=== PATIENT | male | born 1940 | race American Indian/Alaskan Native ===

== ENCOUNTER 2018-07-26 09:25 | Emergency (ER) | payer MEDICARE ==
[2018-07-26 11:25] VITALS: BMI 36.2
== END 2018-07-26 09:44 | disposition left against medical advice (07) ==
LOC: ED 09:25
DX: Z02.89 Encounter for other administrative examinations (principal)

== ENCOUNTER 2018-08-14 20:07 | Inpatient (IN) | payer MEDICARE | END 2018-08-18 18:42 | disposition skilled nursing facility (03) | LOC: 2RNO 08-15 00:17 → ED 20:07 → 5RSO 08-17 14:53 → ERH 23:31 ==

== ENCOUNTER 2018-08-18 18:44 | Inpatient (IN) | payer MEDICARE ==
[2018-08-18 18:51] VITALS: BMI 35.5
[2018-08-18] MEDS ORDERED: oxyCODONE 5 mg Immediate Release Tab PO PRN (18:51)
[2018-08-18] MEDS ORDERED: HYDROmorphone 0.5 mg/0.5 ml ISec IVP PRN (18:55)
[2018-08-18] MEDS: MEROPENEM 500 MG in NS 500 MG/50 ML BAG IVPB SCH (21:30)
[2018-08-18] MEDS: Morphine 30 mg SR Tab PO SCH (21:36)
[2018-08-18] MEDS ORDERED: Influenza Vaccine 60 mcg/0.5 mL SYR (4YR UP) IM ONE (22:53)
[2018-08-18] MEDS ORDERED: Pneumococcal 23-Valent Vaccine IM ONE (22:53)
[2018-08-19] MEDS: oxyCODONE 5 mg Immediate Release Tab PO PRN ×2 (01:46→13:25)
[2018-08-19] MEDS: MEROPENEM 500 MG in NS 500 MG/50 ML BAG IVPB SCH (05:19)
[2018-08-19] MEDS: Pantoprazole 40 mg EC Tab PO SCH (05:21)
[2018-08-19] MEDS: Morphine 30 mg SR Tab PO SCH ×2 (09:10→21:50)
--- NOTE | 2018-08-19 12:26 | HP ---
DATE OF EXAM: 08/19/2018 The patient is seen and examined at the bedside on 08/19/2018, on TCU. CHIEF COMPLAINT: Deconditioned, fatigue and tired. HISTORY OF PRESENT ILLNESS: Mr. Ponce Beltre is 78-year-old male with history of back multiple surgeries. He is going to Pain Management, came to [facility] emergency room on 08/14/2018, for back pain, nauseous and feverish. We admitted the patient. Did CAT scan of the head, cervical spine CT, chest CT, extremity ultrasound, seen by Dr. Lillie Iraheta, and Infectious Disease, getting antibiotic, seen by the Pain Management and Swaging Machine Adjuster, improved, transferred to TCU for continuity of care , and get the physical therapy. PAST MEDICAL HISTORY: Hypertension, back pain and bilateral shoulder pain. ALLERGIES: THE PATIENT IS ALLERGIC TO CIPROFLOXACIN AND ERYTHROMYCIN. SOCIAL HISTORY: No smoking. No drugs. No ethanol. HOME MEDICATIONS: Reviewed by me. REVIEW OF SYSTEM: The patient seen and examined at the bedside. Looking comfortable. No fever. No chills. No headache. No dizziness. No chest pain. No palpitations. No nausea, vomiting or diarrhea. PHYSICAL EXAMINATION: VITAL SIGNS: Temperature 97.8, pulse 52, blood pressure 148/78 and respiratory rate 18. HEENT: Head is normocephalic and atraumatic. Eyes; PERRLA. Extraocular muscles intact. Conjunctivae are clear. Nose patent. Mucous membrane moist. NECK: Supple. No carotid bruits. No JVD. No thyromegaly. CHEST: Bilateral symmetrical. HEART: S1 and S2, positive. LUNGS: Clear to auscultation. ABDOMEN: Soft. Bowel sounds present. No organomegaly. EXTREMITIES: No edema. No cyanosis. NEUROLOGIC: Patient is awake and alert. Moving all four extremities. No focal deficit. LABORATORY DATA: We do not have recent labs, but I reviewed old labs. White blood cell 4.6, hemoglobin 11.4, hematocrit 35.1 and platelet 117. Sodium 135, potassium 3.8, BUN 14, creatinine 0.4. and Glucose 134. MEDICATIONS: Dilaudid, Flomax, Lasix, Lopressor, meropenem, morphine from Pain Management, Neurontin, [place] nasal spray and Pepcid. ASSESSMENT AND PLAN: Mr. Ponce Beltre is a 78-year-old male with the history of leukocytosis, improved, anemia, iron deficiency, abnormal liver function test, came with syncopal episode, found to have urinary tract infection with extended-spectrum beta-lactamase plus Escherichia coli. He has multiple medication issues, including chronic back pain and ulceration of the left leg. We will call Pain Management to continue that pain medication. We will give for 5-7 days treatment of urinary tract infection. Given extended-spectrum beta-lactamase plus Escherichia coli, limited antibiotic as per Infectious Disease. Supportive care. Physical therapy. Seen by the Podiatry Dr. Lucia, has lower extremity ulceration. Local wound care. Seen by Dr. Chapa. We will continue antibiotics and physical therapy and pain management. We will follow. Leah Cantu MD MTDRyan
--- NOTE | 2018-08-19 13:39 | CP.PCM.CON ---
<Yanni Sagastume - Last Filed: 08/19/18 13:58> History of Present Illness - History of Present Illness History of Present Illness: Podiatry - Dr. Khari Mandujano seen and evaluated this AM in TCU for left leg ulceration. Patient was admitted on 08/14/18 for syncopal episode, back pain, nausea, and fever. Patient was found to improve so was transferred to TCU for physical therapy and continuation of care. Podiatry consulted for further management of left leg wound. At present, patient denies any lower extremity complaints. Patient states he has been wearing the compression stockings w/o issues. Tolerating physical therapy. Patient aware he is to follow up with Dr. Scot Cobian in the wound care center upon discharge. Denies n/v/f/d/c/sob/oropeza/cp. Review of Systems - Review of Systems All systems: reviewed and no additional remarkable complaints except (as per HPI) Past Patient History - Past Social History Smoking Status: Former Smoker - CARDIAC Hx Hypertension: Yes - PULMONARY Hx Respiratory Disorders: No - NEUROLOGICAL Hx Neurological Disorder: No - HEENT Hx HEENT Problems: Yes (uses reading glasses) - RENAL Hx Chronic Kidney Disease: No - ENDOCRINE/METABOLIC Hx Endocrine Disorders: No - HEMATOLOGICAL/ONCOLOGICAL Hx Blood Disorders: No - INTEGUMENTARY Hx Dermatological Problems: Yes (b/l discolored) - MUSCULOSKELETAL/RHEUMATOLOGICAL Hx Falls: Yes - GASTROINTESTINAL Hx Gastrointestinal Disorders: Yes (GERD) - GENITOURINARY/GYNECOLOGICAL Hx Genitourinary Disorders: Yes (UTI,ESBL INTHE URINE) Hx Reproductive Disorders: Yes (BPH,PHIMOSIS) - PSYCHIATRIC Hx Substance Use: No - SURGICAL HISTORY Hx Surgeries: Yes Hx Musculoskeletal Surgery: (back sx (5 times)) Hx Orthopedic Surgery: Yes (b/l shoulder) - ANESTHESIA Hx Anesthesia: Yes Hx Anesthesia Reactions: No Meds Allergies/Adverse Reactions: Allergies Allergy/AdvReac Type Severity Reaction Status Date / Time ciprofloxacin [From Cipro] Allergy ANAPHYLAXIS Verified 08/18/18 18:42 - Medications Medications: Current Medications Acetaminophen (Tylenol 325mg Tab) 650 mg PO Q6H PRN PRN Reason: temp above 101 Famotidine (Pepcid) 40 mg PO HS [facility] Last Admin: 08/18/18 21:37 Dose: 40 mg Gabapentin (Neurontin) 600 mg PO TID [facility] Last Admin: 08/19/18 13:22 Dose: 600 mg Hydromorphone HCl (Dilaudid) 0.5 mg IVP Q4H PRN PRN Reason: mild pain ( 1-3) Metoprolol Tartrate (Lopressor) 50 mg PO 0800,1800 [facility] Last Admin: 08/19/18 08:09 Dose: 50 mg Morphine Sulfate (Morphine Extended Release Tab) 60 mg PO Q12 [facility] Last Admin: 08/19/18 09:10 Dose: 60 mg Ondansetron HCl (Zofran Inj) 4 mg IVP Q6H PRN PRN Reason: Nausea/Vomiting Oxycodone HCl (Oxycodone Immediate Release Tab) 5 mg PO Q6 PRN PRN Reason: moderate pain 4-7 Last Admin: 08/19/18 13:25 Dose: 5 mg Pantoprazole Sodium (Protonix Ec Tab) 40 mg PO 0600 [facility] Last Admin: 08/19/18 05:21 Dose: 40 mg Polysaccharide Iron Complex (Ferrex-150) 150 mg PO DAILY [facility] Sodium Chloride ([place] Nasal [place]) 0 ml NS Q2H PRN PRN Reason: Nasal congestion Tamsulosin HCl (Flomax) 0.4 mg PO DAILY [facility] Last Admin: 08/19/18 09:10 Dose: 0.4 mg Physical Exam - Constitutional Appears: Non-toxic, No Acute Distress - Extremities Exam Additional comments: LLE focused exam: Vascular: DP/PT 1/4, CFT < 3 seconds, TG warm to warm, +1 edema appreciated to b/l lower extremities Ortho: No pain with calf compression, MMT 5/5, no pain with palpation shaquille wound Neuro: Gross and protective sensation intact Derm: Small linear ulceration appreciated to the proximal 1/3 of the R leg. Mild serous drainage, no purulence, no malodor, no erythema, no cellulitis, no clinical signs of active infection. - Neurological Exam Neurological exam: Alert, Oriented x3 - Psychiatric Exam Psychiatric exam: Normal Affect, Normal Mood Results - Vital Signs Recent Vital Signs: Last Vital Signs Temp 97.8 F 08/19/18 10:00 Pulse 52 L 08/19/18 10:00 Resp 18 08/19/18 10:00 BP 148/78 08/19/18 10:00 Pulse Ox 100 08/19/18 10:00 Assessment & Plan - Assessment and Plan (Free Text) Assessment: 78M with left lower extremity ulceration; stable, improving Plan: Patient seen and evaluated alongside attending, Dr. Khari ZAVALA wound culture; E. Coli Continue local wound care: Optifoam -Bactroban ordered for QD dressing changes Continue PT/OT Stable from podiatry standpoint Upon discharge, patient to follow up with Dr. Scot Cobian in the wound care center Podiatry will continue to follow <Jose Lucia - Last Filed: 08/22/18 08:08> Meds - Medications Medications: Current Medications Acetaminophen (Tylenol 325mg Tab) 650 mg PO Q6H PRN PRN Reason: temp above 101 Famotidine (Pepcid) 40 mg PO HS [facility] Last Admin: 08/21/18 21:22 Dose: 40 mg Gabapentin (Neurontin) 600 mg PO TID [facility] Last Admin: 08/21/18 17:19 Dose: 600 mg Hydromorphone HCl (Dilaudid) 0.5 mg IVP Q4H PRN PRN Reason: mild pain ( 1-3) Last Admin: 08/19/18 15:41 Dose: 0.5 mg Meropenem/Sodium Chloride (Merrem Iv 500 Mg/Ns 50 Ml) 500 mg in 50 mls @ 100 mls/hr IVPB Q8 [facility]; Protocol Last Admin: 08/22/18 05:30 Dose: 100 mls/hr Magnesium Hydroxide (Milk Of Magnesia) 30 ml PO DAILY PRN PRN Reason: Heartburn Last Admin: 08/21/18 13:24 Dose: 30 ml Metoprolol Tartrate (Lopressor) 50 mg PO 0800,1800 [facility] Last Admin: 08/22/18 07:58 Dose: 50 mg Morphine Sulfate (Morphine Extended Release Tab) 60 mg PO Q12 [facility] Last Admin: 08/21/18 21:21 Dose: 60 mg Mupirocin (Bactroban Ointment) 0 gm TOP DAILY [facility] Last Admin: 08/21/18 09:02 Dose: 1 appl Ondansetron HCl (Zofran Inj) 4 mg IVP Q6H PRN PRN Reason: Nausea/Vomiting Oxycodone HCl (Oxycodone Immediate Release Tab) 5 mg PO Q6 PRN PRN Reason: moderate pain 4-7 Last Admin: 08/22/18 05:30 Dose: 5 mg Pantoprazole Sodium (Protonix Ec Tab) 40 mg PO 0600 [facility] Last Admin: 08/22/18 05:31 Dose: 40 mg Polyethylene Glycol (Miralax) 17 gm PO HS PRN; Protocol PRN Reason: Constipation Polysaccharide Iron Complex (Ferrex-150) 150 mg PO DAILY [facility] Last Admin: 08/21/18 09:03 Dose: 150 mg Sodium Chloride ([place] Nasal [place]) 0 ml NS Q2H PRN PRN Reason: Nasal congestion Tamsulosin HCl (Flomax) 0.4 mg PO DAILY [facility] Last Admin: 08/21/18 09:03 Dose: 0.4 mg Results - Vital Signs Recent Vital Signs: Last Vital Signs Temp 98.3 F 08/21/18 16:00 Pulse 54 L 08/22/18 07:58 Resp 18 08/21/18 16:00 BP 119/75 08/22/18 07:58 Pulse Ox 100 08/21/18 16:00 - Labs Result Diagrams: 08/20/18 08:31 08/20/18 08:31 Attending/Attestation - Attestation I have personally seen and examined this patient.: Yes I have fully participated in the care of the patient.: Yes I have reviewed all pertinent clinical information: Yes
[2018-08-19] MEDS: HYDROmorphone 0.5 mg/0.5 ml ISec IVP PRN (15:41)
--- NOTE | 2018-08-19 18:36 | CP.PCM.CON ---
History of Present Illness - History of Present Illness History of Present Illness: Infectious Disease Consultation: August 19, 2018 78 yo AA male with a syncopal episode at home. Brought [place] [facility] [place]. Found to have UTI with ESBL+ E. coli. He has multiple medical issues including chronic back pain and ulceration on the left lower leg. The patient is awake and alert now. No make no major complaints at this time. The patient is comfortable at this time. Ambulatory. PMHx: HTN, back pain, bilateral shoulder pain PSHx: none given Allergies: Ciprofloxacin and Erythromycin Social Hx: No tobacco No EtOH No illicit drug use. Active Medications Acetaminophen (Tylenol 325mg Tab) 650 mg PO Q6H PRN PRN Reason: temp above 101 Famotidine (Pepcid) 40 mg PO HS [facility] Last Admin: 08/18/18 21:37 Dose: 40 mg Gabapentin (Neurontin) 600 mg PO TID [facility] Last Admin: 08/19/18 17:20 Dose: 600 mg Hydromorphone HCl (Dilaudid) 0.5 mg IVP Q4H PRN PRN Reason: mild pain ( 1-3) Last Admin: 08/19/18 15:41 Dose: 0.5 mg Metoprolol Tartrate (Lopressor) 50 mg PO 0800,1800 [facility] Last Admin: 08/19/18 17:20 Dose: 50 mg Morphine Sulfate (Morphine Extended Release Tab) 60 mg PO Q12 [facility] Last Admin: 08/19/18 09:10 Dose: 60 mg Mupirocin (Bactroban Ointment) 0 gm TOP DAILY [facility] Ondansetron HCl (Zofran Inj) 4 mg IVP Q6H PRN PRN Reason: Nausea/Vomiting Oxycodone HCl (Oxycodone Immediate Release Tab) 5 mg PO Q6 PRN PRN Reason: moderate pain 4-7 Last Admin: 08/19/18 13:25 Dose: 5 mg Pantoprazole Sodium (Protonix Ec Tab) 40 mg PO 0600 [facility] Last Admin: 08/19/18 05:21 Dose: 40 mg Polysaccharide Iron Complex (Ferrex-150) 150 mg PO DAILY [facility] Sodium Chloride ([place] Nasal [place]) 0 ml NS Q2H PRN PRN Reason: Nasal congestion Tamsulosin HCl (Flomax) 0.4 mg PO DAILY [facility] Last Admin: 08/19/18 09:10 Dose: 0.4 mg Family Hx: none given ROS: syncopal episodes. general back pain. No fevers, chills, nausea, vomiting, diarrhea, headaches, dizziness, chest pain, abdominal pain, melena, hematuria, hematemesis, hematochezia. Past Patient History - Past Social History Smoking Status: Former Smoker - CARDIAC Hx Hypertension: Yes - PULMONARY Hx Respiratory Disorders: No - NEUROLOGICAL Hx Neurological Disorder: No - HEENT Hx HEENT Problems: Yes (uses reading glasses) - RENAL Hx Chronic Kidney Disease: No - ENDOCRINE/METABOLIC Hx Endocrine Disorders: No - HEMATOLOGICAL/ONCOLOGICAL Hx Blood Disorders: No - INTEGUMENTARY Hx Dermatological Problems: Yes (b/l discolored) - MUSCULOSKELETAL/RHEUMATOLOGICAL Hx Falls: Yes - GASTROINTESTINAL Hx Gastrointestinal Disorders: Yes (GERD) - GENITOURINARY/GYNECOLOGICAL Hx Genitourinary Disorders: Yes (UTI,ESBL INTHE URINE) Hx Reproductive Disorders: Yes (BPH,PHIMOSIS) - PSYCHIATRIC Hx Substance Use: No - SURGICAL HISTORY Hx Surgeries: Yes Hx Musculoskeletal Surgery: (back sx (5 times)) Hx Orthopedic Surgery: Yes (b/l shoulder) - ANESTHESIA Hx Anesthesia: Yes Hx Anesthesia Reactions: No Meds Allergies/Adverse Reactions: Allergies Allergy/AdvReac Type Severity Reaction Status Date / Time ciprofloxacin [From Cipro] Allergy ANAPHYLAXIS Verified 08/18/18 18:42 - Medications Medications: Current Medications Acetaminophen (Tylenol 325mg Tab) 650 mg PO Q6H PRN PRN Reason: temp above 101 Famotidine (Pepcid) 40 mg PO HS [facility] Last Admin: 08/18/18 21:37 Dose: 40 mg Gabapentin (Neurontin) 600 mg PO TID [facility] Last Admin: 08/19/18 17:20 Dose: 600 mg Hydromorphone HCl (Dilaudid) 0.5 mg IVP Q4H PRN PRN Reason: mild pain ( 1-3) Last Admin: 08/19/18 15:41 Dose: 0.5 mg Metoprolol Tartrate (Lopressor) 50 mg PO 0800,1800 [facility] Last Admin: 08/19/18 17:20 Dose: 50 mg Morphine Sulfate (Morphine Extended Release Tab) 60 mg PO Q12 [facility] Last Admin: 08/19/18 09:10 Dose: 60 mg Mupirocin (Bactroban Ointment) 0 gm TOP DAILY [facility] Ondansetron HCl (Zofran Inj) 4 mg IVP Q6H PRN PRN Reason: Nausea/Vomiting Oxycodone HCl (Oxycodone Immediate Release Tab) 5 mg PO Q6 PRN PRN Reason: moderate pain 4-7 Last Admin: 08/19/18 13:25 Dose: 5 mg Pantoprazole Sodium (Protonix Ec Tab) 40 mg PO 0600 [facility] Last Admin: 08/19/18 05:21 Dose: 40 mg Polysaccharide Iron Complex (Ferrex-150) 150 mg PO DAILY [facility] Sodium Chloride ([place] Nasal [place]) 0 ml NS Q2H PRN PRN Reason: Nasal congestion Tamsulosin HCl (Flomax) 0.4 mg PO DAILY [facility] Last Admin: 08/19/18 09:10 Dose: 0.4 mg Physical Exam - Constitutional Appears: Non-toxic, No Acute Distress - Head Exam Head Exam: ATRAUMATIC, NORMOCEPHALIC - Eye Exam Eye Exam: EOMI, PERRL Pupil Exam: NORMAL ACCOMODATION, PERRL - ENT Exam ENT Exam: Mucous Membranes Moist, Normal External Ear Exam, TM's Normal Bilaterally - Neck Exam Neck exam: Positive for: Full Rom, Normal Inspection - Respiratory Exam Respiratory Exam: Clear to Auscultation Bilateral, NORMAL BREATHING PATTERN. absent: Rales, Rhonchi, Wheezes - Cardiovascular Exam Cardiovascular Exam: REGULAR RHYTHM, RRR, +S1, +S2 - GI/Abdominal Exam GI & Abdominal Exam: Normal Bowel Sounds, Soft. absent: Distended, Tenderness - Extremities Exam Extremities exam: Positive for: full ROM, joint swelling, pedal edema Additional comments: +1 edema of the bilateral lower extremities. - Back Exam Additional comments: two large healed scars on the mid-lower back - Neurological Exam Neurological exam: Alert, CN II-XII Intact, Oriented x3 - Psychiatric Exam Psychiatric exam: Normal Affect, Normal Mood - Skin Skin Exam: Normal Color Results - Vital Signs Recent Vital Signs: Last Vital Signs Temp 97.9 F 08/19/18 16:00 Pulse 54 L 08/19/18 17:20 Resp 20 08/19/18 16:00 BP 142/60 08/19/18 17:20 Pulse Ox 99 08/19/18 16:00 Assessment & Plan - Assessment and Plan (Free Text) Assessment: 78 yo AA male with syncopal episode brought [place] [facility] [place]. UTI with EBSL+ E. coli. Left lower leg ulceration. Started on Meropenem for antibiotic treatment. Supportive care. Fluoroquinolone allergies. Looking for 5-7 days of treatment for UTI. Given ESBL+ E. coli, limited antibiotic choices. Supportive care. Patient overall comfortable. Thank you for allowing me to participate in the care of the patient, we will follow with you.
[2018-08-19] MEDS ORDERED: POLYETHYLENE GLYCOL 3350 17 GM/Dose PACKET PO ONE (21:26)
[2018-08-20] MEDS: oxyCODONE 5 mg Immediate Release Tab PO PRN ×2 (03:18→13:55)
[2018-08-20] MEDS: Pantoprazole 40 mg EC Tab PO SCH (05:24)
[2018-08-20] MEDS ORDERED: POLYETHYLENE GLYCOL 3350 17 GM/Dose PACKET PO PRN (06:00)
[2018-08-20 07:47] LABS: ALB/GLOB RATIO 0.8 (1.1-1.8); ALBUMIN 3.6 g/dL (3.0-4.8); BILIRUBIN,DIRECT 0.3 mg/dL (0.0-0.4)
[2018-08-20 08:40] LABS: HEMOGLOBIN 11.8 g/dL (14.0-18.0); MEAN CELL VOLUME 88.3 fl (80.0-105.0); MEAN CORPUSCULAR HEMOGLOBIN 28.7 pg (25.0-35.0); MEAN CORPUSCULAR HGB CONC 32.5 g/dl (31.0-37.0); MEAN PLATELET VOLUME 10.2 fl (7.0-11.0); RBC 4.11 10^6/uL (3.5-6.1); RED CELL DISTRIBUTION WIDTH 13.7 % (11.5-14.5); WHITE BLOOD COUNT 4.6 10^3/uL (4.5-11.0)
[2018-08-20 08:45] LABS: BLOOD UREA NITROGEN 11 mg/dL (7-21); CALCIUM 10.4 mg/dL (8.4-10.5); GFR NON-AFRICAN AMERICAN > 60
[2018-08-20] MEDS: Morphine 30 mg SR Tab PO SCH ×2 (09:15→21:27)
[2018-08-20] MEDS: Iron Complex Polysacch 150mg Cap PO SCH (09:16)
[2018-08-20] MEDS: Mupirocin 2% Ointment 15 GM TUBE TOP SCH (15:32)
--- NOTE | 2018-08-20 17:54 | CP.PCM.PN ---
Subjective - Date & Time of Evaluation Date of Evaluation: 08/20/18 Time of Evaluation: 16:00 - Subjective Subjective: Infectious Disease Follow Up: August 20, 2018 78 yo AA male with a syncopal episode at home. Brought to [facility] ER for evaluation. Found to have UTI with ESBL+ E. coli. He has multiple medical issues including chronic back pain and ulceration on the left lower leg. The patient is awake and alert now. No make no major complaints at this time. The patient is comfortable at this time. Ambulatory. Objective - Vital Signs/Intake and Output Vital Signs (last 24 hours): Temp Pulse Resp BP Pulse Ox 97.9 F 52 L 20 124/60 99 08/19/18 16:00 08/20/18 17:17 08/19/18 16:00 08/20/18 17:17 08/19/18 16:00 - Medications Medications: Current Medications Acetaminophen (Tylenol 325mg Tab) 650 mg PO Q6H PRN PRN Reason: temp above 101 Famotidine (Pepcid) 40 mg PO HS [facility] Last Admin: 08/19/18 21:52 Dose: 40 mg Gabapentin (Neurontin) 600 mg PO TID [facility] Last Admin: 08/20/18 17:16 Dose: 600 mg Hydromorphone HCl (Dilaudid) 0.5 mg IVP Q4H PRN PRN Reason: mild pain ( 1-3) Last Admin: 08/19/18 15:41 Dose: 0.5 mg Metoprolol Tartrate (Lopressor) 50 mg PO 0800,1800 [facility] Last Admin: 08/20/18 17:17 Dose: 50 mg Morphine Sulfate (Morphine Extended Release Tab) 60 mg PO Q12 [facility] Last Admin: 08/20/18 09:15 Dose: 60 mg Mupirocin (Bactroban Ointment) 0 gm TOP DAILY [facility] Last Admin: 08/20/18 15:32 Dose: 1 appl Ondansetron HCl (Zofran Inj) 4 mg IVP Q6H PRN PRN Reason: Nausea/Vomiting Oxycodone HCl (Oxycodone Immediate Release Tab) 5 mg PO Q6 PRN PRN Reason: moderate pain 4-7 Last Admin: 08/20/18 13:55 Dose: 5 mg Pantoprazole Sodium (Protonix Ec Tab) 40 mg PO 0600 [facility] Last Admin: 08/20/18 05:24 Dose: 40 mg Polyethylene Glycol (Miralax) 17 gm PO HS PRN; Protocol PRN Reason: Constipation Polysaccharide Iron Complex (Ferrex-150) 150 mg PO DAILY [facility] Last Admin: 08/20/18 09:16 Dose: 150 mg Sodium Chloride ([place] Nasal [place]) 0 ml NS Q2H PRN PRN Reason: Nasal congestion Tamsulosin HCl (Flomax) 0.4 mg PO DAILY [facility] Last Admin: 08/20/18 09:16 Dose: 0.4 mg - Labs Labs: 08/20/18 08:31 08/20/18 08:31 - Constitutional Appears: Non-toxic, No Acute Distress - Head Exam Head Exam: ATRAUMATIC, NORMOCEPHALIC - Eye Exam Eye Exam: EOMI, PERRL Pupil Exam: NORMAL ACCOMODATION, PERRL - ENT Exam ENT Exam: Mucous Membranes Moist, TM's Normal Bilaterally - Neck Exam Neck Exam: Full ROM, Normal Inspection - Respiratory Exam Respiratory Exam: Clear to Ausculation Bilateral, NORMAL BREATHING PATTERN. absent: Rales, Rhonchi, Wheezes - Cardiovascular Exam Cardiovascular Exam: REGULAR RHYTHM, RRR, +S1, +S2 - GI/Abdominal Exam GI & Abdominal Exam: Soft, Normal Bowel Sounds. absent: Distended, Tenderness - Extremities Exam Extremities Exam: Full ROM, Normal Inspection Additional comments: +1 edema of the bilateral lower extremities. - Back Exam Additional comments: two large healed scars on the mid-lower back - Neurological Exam Neurological Exam: Alert, Awake, CN II-XII Intact, Oriented x3 - Psychiatric Exam Psychiatric exam: Normal Affect, Normal Mood - Skin Skin Exam: Intact, Normal Color Assessment and Plan - Assessment and Plan (Free Text) Assessment: 78 yo AA male with syncopal episode brought to [facility] for further care. UTI with EBSL+ E. coli. Left lower leg ulceration. Started on Meropenem for antibiotic treatment. Supportive care. Fluoroquinolone allergies. Looking for 5-7 total days of treatment for UTI. Given ESBL+ E. coli, limited antibiotic choices. Supportive care. Patient overall comfortable. Thank you for allowing me to participate in the care of the patient, we will follow with you.
[2018-08-20] MEDS: MEROPENEM 500 MG in NS 500 MG/50 ML BAG IVPB SCH ×2 (18:20→22:31)
--- NOTE | 2018-08-21 02:08 | PN ---
DATE: 08/20/2018 SUBJECTIVE: The patient is seen and examined at bedside on 08/20/2018. Looking comfortable. No fever. No chills. No hematuria or hematochezia. No headache. No dizziness. No chest pain. No palpitation. PHYSICAL EXAMINATION: VITAL SIGNS: Temperature 97.9, pulse rate 82, blood pressure 144/70, respiratory rate 20, and pulse oximetry 99. HEENT: Head; normocephalic and atraumatic. Eyes; PERRLA, extraocular muscles intact, conjunctivae clear. Nose patent. Mucous membranes moist. NECK: Supple. No carotid bruit. No JVD or thyromegaly. CHEST: Bilaterally symmetrical. HEART: S1 and S2 positive. LUNGS: Clear to auscultation. MEDICATIONS: Tylenol, famotidine, gabapentin, Dilaudid, metoprolol, morphine, Zofran, oxycodone, pantoprazole, MiraLax, iron, and Flomax. LABORATORY DATA: White blood cell 4.6, hemoglobin 11.8, hematocrit 36.3, platelets 150. Sodium 137, potassium 4.7, BUN 11, creatinine 0.8, glucose 90. ASSESSMENT AND PLAN: Mr. Alexsander Serra is a 78-year-old male with anemia, came with syncopal episode, to be in hospital, has urinary tract infection with extended spectrum beta-lactamase plus Escherichia coli, left lower leg cellulitis. Started on meropenem for antibiotics treatment, supportive care. THE PATIENT IS ALLERGIC WITH FLUOROQUINOLONE, BUT THAT NOT BE GIVEN. Looking for 5 to 7 days of treatment for urinary tract infection. Given extended spectrum beta-lactamase plus Escherichia coli, limited antibiotic choice. Supportive care. Gastrointestinal and deep venous thrombosis prophylaxis. The patient is getting physical therapy also. History of hypertension, back pain, bilateral shoulder pain, degenerative joint disease, deconditioned. Continue local wound care, antibiotics, physical therapy. We will follow up. Leah Cantu MD MTDD
[2018-08-21] MEDS: MEROPENEM 500 MG in NS 500 MG/50 ML BAG IVPB SCH ×3 (05:11→21:21)
[2018-08-21] MEDS: Pantoprazole 40 mg EC Tab PO SCH (05:11)
[2018-08-21] MEDS: oxyCODONE 5 mg Immediate Release Tab PO PRN (05:17)
[2018-08-21] MEDS: Morphine 30 mg SR Tab PO SCH ×2 (09:01→21:21)
[2018-08-21] MEDS: Mupirocin 2% Ointment 15 GM TUBE TOP SCH (09:02)
[2018-08-21] MEDS: Iron Complex Polysacch 150mg Cap PO SCH (09:03)
--- NOTE | 2018-08-21 11:35 | CP.PCM.PN ---
<Jorge Selby - Last Filed: 08/21/18 11:33> Subjective - Date & Time of Evaluation Date of Evaluation: 08/21/18 Time of Evaluation: 11:33 - Subjective Subjective: Podiatry progress note - Drs. Lucia/Sonya 78M seen and evaluated at bedside in TCU with Dr. Hassan. Denies any acute events overnight and is seen resting comfortably. Reports no pain to LE and has no other acute complaints. Denies n/v/f/c/sob/cp today. Objective - Vital Signs/Intake and Output Vital Signs (last 24 hours): Temp Pulse Resp BP Pulse Ox 97.7 F 51 L 16 110/65 98 08/21/18 10:00 08/21/18 10:00 08/21/18 10:00 08/21/18 10:00 08/21/18 10:00 - Medications Medications: Current Medications Acetaminophen (Tylenol 325mg Tab) 650 mg PO Q6H PRN PRN Reason: temp above 101 Famotidine (Pepcid) 40 mg PO HS [facility] Last Admin: 08/20/18 21:36 Dose: 40 mg Gabapentin (Neurontin) 600 mg PO TID [facility] Last Admin: 08/21/18 09:03 Dose: 600 mg Hydromorphone HCl (Dilaudid) 0.5 mg IVP Q4H PRN PRN Reason: mild pain ( 1-3) Last Admin: 08/19/18 15:41 Dose: 0.5 mg Meropenem/Sodium Chloride (Merrem Iv 500 Mg/Ns 50 Ml) 500 mg in 50 mls @ 100 mls/hr IVPB Q8 [facility]; Protocol Last Admin: 08/21/18 05:11 Dose: 100 mls/hr Metoprolol Tartrate (Lopressor) 50 mg PO 0800,1800 [facility] Last Admin: 08/21/18 07:54 Dose: 50 mg Morphine Sulfate (Morphine Extended Release Tab) 60 mg PO Q12 [facility] Last Admin: 08/21/18 09:01 Dose: 60 mg Mupirocin (Bactroban Ointment) 0 gm TOP DAILY [facility] Last Admin: 08/21/18 09:02 Dose: 1 appl Ondansetron HCl (Zofran Inj) 4 mg IVP Q6H PRN PRN Reason: Nausea/Vomiting Oxycodone HCl (Oxycodone Immediate Release Tab) 5 mg PO Q6 PRN PRN Reason: moderate pain 4-7 Last Admin: 08/21/18 05:17 Dose: 5 mg Pantoprazole Sodium (Protonix Ec Tab) 40 mg PO 0600 [facility] Last Admin: 08/21/18 05:11 Dose: 40 mg Polyethylene Glycol (Miralax) 17 gm PO HS PRN; Protocol PRN Reason: Constipation Polysaccharide Iron Complex (Ferrex-150) 150 mg PO DAILY [facility] Last Admin: 08/21/18 09:03 Dose: 150 mg Sodium Chloride ([place] Nasal [place]) 0 ml NS Q2H PRN PRN Reason: Nasal congestion Tamsulosin HCl (Flomax) 0.4 mg PO DAILY [facility] Last Admin: 08/21/18 09:03 Dose: 0.4 mg - Labs Labs: 08/20/18 08:31 08/20/18 08:31 - Constitutional Appears: Non-toxic - Head Exam Head Exam: ATRAUMATIC - Extremities Exam Additional comments: LLE focused exam: Vascular: DP/PT 1/4, CFT < 3 seconds, TG warm to warm, +1 edema appreciated to b/l lower extremities Ortho: No pain with calf compression, MMT 5/5, no pain with palpation shaquille wound Neuro: Gross and protective sensation intact Derm: Small linear ulceration appreciated to the proximal 1/3 of the R leg. Mild serous drainage, no purulence, no malodor, no erythema, no cellulitis, no clinical signs of active infection. - Neurological Exam Neurological Exam: Alert, Awake, Oriented x3 - Psychiatric Exam Psychiatric exam: Normal Affect, Normal Mood Assessment and Plan - Assessment and Plan (Free Text) Assessment: 78M with left lower extremity ulceration; stable, improving Plan: Patient seen and evaluated with Dr. Sonya ZAVALA wound culture; E. Coli Continue local wound care: Optifoam Iodosorb ordered for dressings Podiatry to see MWF dressing change Continue PT/OT Stable from podiatry standpoint Upon discharge, patient to follow up with Dr. Scot Cobian in the wound care center Podiatry will continue to follow <Jessie Hassan - Last Filed: 08/27/18 15:40> Objective - Vital Signs/Intake and Output Vital Signs (last 24 hours): Temp Pulse Resp BP Pulse Ox 98.3 F 63 20 160/78 H 99 08/25/18 16:00 08/26/18 12:23 08/25/18 16:00 08/26/18 10:17 08/26/18 12:23 - Labs Labs: 08/25/18 07:00 08/26/18 05:00 Attending/Attestation - Attestation I have personally seen and examined this patient.: Yes I have fully participated in the care of the patient.: Yes I have reviewed all pertinent clinical information, including history, physical exam and plan: Yes
[2018-08-21] MEDS: Magnesium Hydroxide Susp 30 ml UD PO PRN (13:24)
--- NOTE | 2018-08-21 16:16 | CP.PCM.PN ---
Subjective - Date & Time of Evaluation Date of Evaluation: 08/21/18 Time of Evaluation: 14:30 - Subjective Subjective: Infectious Disease Follow Up: August 21, 2018 78 yo AA male with a syncopal episode at home. Brought to [facility] ER for evaluation. Found to have UTI with ESBL+ E. coli. He has multiple medical issues including chronic back pain and ulceration on the left lower leg. The patient is awake and alert now. No make no major complaints at this time. The patient is comfortable at this time. Ambulatory. Objective - Vital Signs/Intake and Output Vital Signs (last 24 hours): Temp Pulse Resp BP Pulse Ox 97.7 F 51 L 16 110/65 98 08/21/18 10:00 08/21/18 10:00 08/21/18 10:00 08/21/18 10:00 08/21/18 10:00 - Medications Medications: Current Medications Acetaminophen (Tylenol 325mg Tab) 650 mg PO Q6H PRN PRN Reason: temp above 101 Famotidine (Pepcid) 40 mg PO HS [facility] Last Admin: 08/20/18 21:36 Dose: 40 mg Gabapentin (Neurontin) 600 mg PO TID [facility] Last Admin: 08/21/18 13:23 Dose: 600 mg Hydromorphone HCl (Dilaudid) 0.5 mg IVP Q4H PRN PRN Reason: mild pain ( 1-3) Last Admin: 08/19/18 15:41 Dose: 0.5 mg Meropenem/Sodium Chloride (Merrem Iv 500 Mg/Ns 50 Ml) 500 mg in 50 mls @ 100 mls/hr IVPB Q8 [facility]; Protocol Last Admin: 08/21/18 13:24 Dose: 100 mls/hr Magnesium Hydroxide (Milk Of Magnesia) 30 ml PO DAILY PRN PRN Reason: Heartburn Last Admin: 08/21/18 13:24 Dose: 30 ml Metoprolol Tartrate (Lopressor) 50 mg PO 0800,1800 [facility] Last Admin: 08/21/18 07:54 Dose: 50 mg Morphine Sulfate (Morphine Extended Release Tab) 60 mg PO Q12 [facility] Last Admin: 08/21/18 09:01 Dose: 60 mg Mupirocin (Bactroban Ointment) 0 gm TOP DAILY [facility] Last Admin: 08/21/18 09:02 Dose: 1 appl Ondansetron HCl (Zofran Inj) 4 mg IVP Q6H PRN PRN Reason: Nausea/Vomiting Oxycodone HCl (Oxycodone Immediate Release Tab) 5 mg PO Q6 PRN PRN Reason: moderate pain 4-7 Last Admin: 08/21/18 05:17 Dose: 5 mg Pantoprazole Sodium (Protonix Ec Tab) 40 mg PO 0600 [facility] Last Admin: 08/21/18 05:11 Dose: 40 mg Polyethylene Glycol (Miralax) 17 gm PO HS PRN; Protocol PRN Reason: Constipation Polysaccharide Iron Complex (Ferrex-150) 150 mg PO DAILY [facility] Last Admin: 08/21/18 09:03 Dose: 150 mg Sodium Chloride ([place] Nasal [place]) 0 ml NS Q2H PRN PRN Reason: Nasal congestion Tamsulosin HCl (Flomax) 0.4 mg PO DAILY [facility] Last Admin: 08/21/18 09:03 Dose: 0.4 mg - Labs Labs: 08/20/18 08:31 08/20/18 08:31 - Constitutional Appears: Non-toxic, No Acute Distress - Head Exam Head Exam: ATRAUMATIC, NORMOCEPHALIC - Eye Exam Eye Exam: EOMI, PERRL Pupil Exam: NORMAL ACCOMODATION, PERRL - ENT Exam ENT Exam: Mucous Membranes Moist, Normal External Ear Exam, TM's Normal Bilaterally - Neck Exam Neck Exam: Full ROM, Normal Inspection - Respiratory Exam Respiratory Exam: Clear to Ausculation Bilateral, NORMAL BREATHING PATTERN. absent: Rales, Rhonchi, Wheezes - Cardiovascular Exam Cardiovascular Exam: REGULAR RHYTHM, RRR, +S1, +S2 - GI/Abdominal Exam GI & Abdominal Exam: Soft, Normal Bowel Sounds. absent: Distended, Tenderness - Extremities Exam Extremities Exam: Full ROM, Normal Inspection Additional comments: +1 edema of the bilateral lower extremities - Back Exam Additional comments: two large healed scars on the mid-lower back - Neurological Exam Neurological Exam: Alert, Awake, CN II-XII Intact, Oriented x3 - Psychiatric Exam Psychiatric exam: Normal Affect, Normal Mood - Skin Skin Exam: Intact, Normal Color Assessment and Plan - Assessment and Plan (Free Text) Assessment: 78 yo AA male with syncopal episode brought to [facility] for further care. UTI with EBSL+ E. coli. Left lower leg ulceration. Started on Meropenem for antibiotic treatment. Supportive care. Fluoroquinolone allergies. Looking for 5-7 total days of treatment for UTI. Given ESBL+ E. coli, limited antibiotic choices. Supportive care. Patient overall comfortable. Thank you for allowing me to participate in the care of the patient, we will follow with you.
--- NOTE | 2018-08-21 19:58 | CON ---
DATE OF CONSULTATION: 08/21/2018 The patient is in room 321, bed 1. REASON FOR CONSULTATION: Possible syncope, hypertension. HISTORY OF PRESENT ILLNESS: A 78-year-old male, who is known to have hypertension, chronic back pain, shoulder pain, cervical radiculopathy, history of cervical fusion C3-C6, chronic venous stasis ulcer on the left lower leg, was admitted to the medical floor with possible syncope. The patient denies any chest pain, short of breath or palpitations. The patient had a workup for syncope at medical floor and now he is admitted to Transitional Care Unit for deconditioning and physical therapy. The patient is presently asymptomatic from cardiac point of view. The patient had echo on medical floor, which showed moderate pulmonary hypertension, normal LV ejection fraction of 55%. PAST MEDICAL HISTORY: Positive for hypertension, back pain, and bilateral shoulder pain, cervical radiculopathy, cervical fusion C3-C6, hypertension, chronic venous stasis. The patient had medical sources, who also treated him for urinary tract infection, and he was on antibiotics. MEDICATIONS: The patient's medication at home included, Nexium, metoprolol, Neurontin, Lasix, Flomax, codeine. PERSONAL HISTORY: Denies smoking, denies drinking. ALLERGIES: THE PATIENT IS ALLERGIC TO CIPROFLOXACIN. FAMILY HISTORY: Nonsignificant. REVIEW OF SYSTEMS: All the system reviewed, positives mentioned in history, others are negative. PHYSICAL EXAMINATION: VITAL SIGNS: Blood pressure 110/65, respirations 16, pulse 51, temperature 97.7. HEENT: Head is normocephalic. Eyes: Pupils normal. Conjunctivae are slightly pale. NECK: JVP low. Carotids equal. Thorax AP diameter normal. LUNGS: Clear. CARDIOVASCULAR: S1 and S2. ABDOMEN: Soft, nontender. No organomegaly. Bowel sounds are normal. EXTREMITIES: No clubbing or cyanosis, but the patient has chronic venous stasis changes on the both leg with ulcers on the left lower leg. LABORATORY DATA: WBC 4.6, hemoglobin 11.8, hematocrit 36.3, platelet 158. Sodium 137, potassium 4.7, BUN 11, creatinine 0.8. Calcium 10.4. AST and ALT normal. Total protein and albumin, normal. Cholesterol 136, triglycerides of 112, LDL 73, HDL 32. TSH 1.43. Vitamin B12 of 443, folate 9.3. EKG showed regular sinus rhythm. Chest x-ray showed slight cardiomegaly. It also was read as mild congestion, but the patient with poor inspiratory film and poor penetration, but clinically the patient does not seem to have any CHF at present. The patient had a CT scan of the head on the 08/14/2018, which showed no evidence of any acute intracranial hemorrhage, mild atrophy and chronic microvascular white matter ischemic changes are seen. Echo was done on 08/17/2018, which showed left ventricular size normal, mild concentric left ventricle hypertrophy, normal ejection fraction of 55%, dilated RA, dilated LA, dilated RV, trace aortic regurg, mild mitral regurg, moderate tricuspid regurg with RVSP of 63 mmHg, which is suggestive of moderate pulmonary hypertension. No pericardial effusion. DIAGNOSES: 1. Possible syncope. 2. Oblique mechanical fall. 3. Hypertension. 4. Chronic back pain. 5. Shoulder pain. 6. Cervical radiculopathy. 7. Cervical fusion C3-C6. 8. Chronic venous stasis. 9. Ulceration of left lower leg. 10. Status post urinary tract infection on medical floor. 11. Anemia. 12. Moderate pulmonary hypertension. 13. Deconditioning. PLAN: Plan is to continue physical therapy, continue iron polysaccharide 150 mg p.o. daily, Flomax 0.4 mg daily. metoprolol tartrate 50 mg b.i.d., meropenem 500 mg IV every eight hourly, Neurontin 600 mg p.o. t.i.d., oxycodone p.r.n., every 6 hours for pain, Protonix 40 mg daily day. We will continue present therapy, and we will follow with you. Brooke Montague MD
[2018-08-22] MEDS: MEROPENEM 500 MG in NS 500 MG/50 ML BAG IVPB SCH ×3 (05:30→21:12)
[2018-08-22] MEDS: oxyCODONE 5 mg Immediate Release Tab PO PRN (05:30)
[2018-08-22] MEDS: Pantoprazole 40 mg EC Tab PO SCH (05:31)
--- NOTE | 2018-08-22 08:14 | PN ---
DATE: 08/21/2018 SUBJECTIVE: The patient is a 78-year-old male. The patient was seen and examined at the bedside on 08/21/2018. Looking comfortable. No fever. No chills. No hematuria or hematochezia. No headache, no dizziness. No chest pain or palpitation. Still has dressing on the leg. Awake and alert. No change in the status. PHYSICAL EXAMINATION: VITAL SIGNS: Temperature 97.7, pulse 51, respiratory rate 16, blood pressure 110/55, pulse oximetry 98%. HEENT: Head is normocephalic and atraumatic. Eyes, PERRLA. Extraocular muscles are intact. Conjunctivae clear. Nose patent. Mucous membranes moist. NECK: Supple. MEDICATIONS: Tylenol, Pepcid, Neurontin, Dilaudid, metoprolol, morphine, Bactroban ointment, Zofran, oxycodone, Protonix, MiraLax. LABORATORY DATA: White blood cell 4.6, hemoglobin 11.8, hematocrit 33.3, platelets 158. Sodium 137, potassium 4.7, BUN 11, creatinine 0.8, glucose 90. ASSESSMENT AND PLAN: Mr. Alexsander Serra is a 78-year-old male with multiple medical problems, came with syncopal episodes, found the patient had urinary tract infection with extended spectrum beta-lactamase plus Escherichia coli, left lower leg ulceration. Getting meropenem for antibiotic treatment. THE PATIENT IS ALLERGIC WITH FLUOROQUINOLONES, CANNOT BE GIVEN. Looking for five to seven days of antibiotics. The patient is deconditioned. Getting physical therapy for deconditioning. History of hypertension, back pain, bilateral shoulder pain. Continue antibiotics. Gastrointestinal and deep venous thrombosis prophylaxis. Repeat laboratories. We will follow up. Leah Cantu MD
[2018-08-22] MEDS: Morphine 30 mg SR Tab PO SCH ×2 (09:12→21:10)
[2018-08-22] MEDS: Mupirocin 2% Ointment 15 GM TUBE TOP SCH (11:00)
[2018-08-22] MEDS: Iron Complex Polysacch 150mg Cap PO SCH (11:00)
--- NOTE | 2018-08-22 14:55 | PN ---
DATE: 08/22/2018 REASON FOR CONSULTATION AND FOLLOWUP: Possible syncope, hypertension, cardiac evaluation, and follow up in transitional care unit for continuity of the care. SUBJECTIVE: The patient denies any chest pain, shortness of breath, or any palpitations. OBJECTIVE: GENERAL: Not in apparent distress, lying in the bed, and getting ready for the rehab. VITAL SIGNS: Temperature afebrile, hear rate 50, blood pressure 119/75. HEENT: PERRLA. Extraocular muscles intact. NECK: Supple. No carotid bruits or thyromegaly. CHEST: Clear to auscultation. HEART: S1 and S2 regular. ABDOMEN: Soft. EXTREMITIES: Clubbing, cyanosis negative. LABORATORY DATA: Blood workup as follows; WBC 4.6, hemoglobin 11.8, hematocrit 36.3, platelet count 158. Chemistry showed sodium 130, potassium 4.7, chloride 102, carbon dioxide 27, anion gap of 30, BUN 11, creatinine 0.8. IMPRESSION: A 78-year-old male with past medical history significant for hypertension, bilateral shoulder pain, cervical radiculopathy, cervical C3-C6, hypertension, chronic venous stasis. The patient had echocardiography done, ejection fraction 55%. Electrocardiogram on this admission shows normal sinus with a regular floor who admitted with possible syncope, possible mechanical fall, hypertension, history of chronic back pain, shoulder pain, cervical radiculopathy, chronic venous stasis, history of recurrent urinary tract infection, anemia, moderate pulmonary hypertension, echo, dilated right atrium, dilated left atrium, dilated right ventricle, trace aortic regurgitation, mild mitral regurgitation, moderate tricuspid regurgitation, right ventricular systolic pressure 63, . RECOMMENDATIONS: Continue physical therapy, continue antibiotics for urinary tract infection, continue low-dose beta dyana, and continue adequate analgesia for back pain. Once the patient is stabilizing, may consider stress as outpatient has been scheduled for stress test as outpatient. was given to Cardiology to schedule Lexiscan for risk stratification. Thank you Dr. Cantu providing us the opportunity in taking care of the patient Alexsander Serra. Stress was not done on the floor because patient was orthostatic hypotension and then moved to TCU. Once stable from the back pain, we will consider stress as outpatient in 3 to 4 weeks. Brooke Chapa MD [facility] # [id number]
--- NOTE | 2018-08-22 17:09 | CP.PCM.PN ---
Subjective - Date & Time of Evaluation Date of Evaluation: 08/22/18 Time of Evaluation: 15:30 - Subjective Subjective: Infectious Disease Follow Up: August 22, 2018 78 yo AA male with a syncopal episode at home. Brought to [facility] ER for evaluation. Found to have UTI with ESBL+ E. coli. He has multiple medical issues including chronic back pain and ulceration on the left lower leg. The patient is awake and alert now. No make no major complaints at this time. The patient is comfortable at this time. Ambulatory. Objective - Vital Signs/Intake and Output Vital Signs (last 24 hours): Temp Pulse Resp BP Pulse Ox 98.3 F 54 L 18 119/75 100 08/21/18 16:00 08/22/18 07:58 08/21/18 16:00 08/22/18 07:58 08/21/18 16:00 - Medications Medications: Current Medications Acetaminophen (Tylenol 325mg Tab) 650 mg PO Q6H PRN PRN Reason: temp above 101 Famotidine (Pepcid) 40 mg PO HS [facility] Last Admin: 08/21/18 21:22 Dose: 40 mg Gabapentin (Neurontin) 600 mg PO TID [facility] Last Admin: 08/22/18 13:59 Dose: 600 mg Hydromorphone HCl (Dilaudid) 0.5 mg IVP Q4H PRN PRN Reason: mild pain ( 1-3) Last Admin: 08/19/18 15:41 Dose: 0.5 mg Meropenem/Sodium Chloride (Merrem Iv 500 Mg/Ns 50 Ml) 500 mg in 50 mls @ 100 mls/hr IVPB Q8 [facility]; Protocol Last Admin: 08/22/18 13:58 Dose: 100 mls/hr Magnesium Hydroxide (Milk Of Magnesia) 30 ml PO DAILY PRN PRN Reason: Heartburn Last Admin: 08/21/18 13:24 Dose: 30 ml Metoprolol Tartrate (Lopressor) 50 mg PO 0800,1800 [facility] Last Admin: 08/22/18 07:58 Dose: 50 mg Morphine Sulfate (Morphine Extended Release Tab) 60 mg PO Q12 [facility] Last Admin: 08/22/18 09:12 Dose: 60 mg Mupirocin (Bactroban Ointment) 0 gm TOP DAILY [facility] Last Admin: 08/22/18 11:00 Dose: 1 appl Ondansetron HCl (Zofran Inj) 4 mg IVP Q6H PRN PRN Reason: Nausea/Vomiting Oxycodone HCl (Oxycodone Immediate Release Tab) 5 mg PO Q6 PRN PRN Reason: moderate pain 4-7 Last Admin: 08/22/18 05:30 Dose: 5 mg Pantoprazole Sodium (Protonix Ec Tab) 40 mg PO 0600 [facility] Last Admin: 08/22/18 05:31 Dose: 40 mg Polyethylene Glycol (Miralax) 17 gm PO HS PRN; Protocol PRN Reason: Constipation Polysaccharide Iron Complex (Ferrex-150) 150 mg PO DAILY [facility] Last Admin: 08/22/18 11:00 Dose: 150 mg Sodium Chloride ([place] Nasal [place]) 0 ml NS Q2H PRN PRN Reason: Nasal congestion Tamsulosin HCl (Flomax) 0.4 mg PO DAILY [facility] Last Admin: 08/22/18 11:00 Dose: 0.4 mg - Labs Labs: 08/20/18 08:31 08/20/18 08:31 - Constitutional Appears: Non-toxic, No Acute Distress - Head Exam Head Exam: ATRAUMATIC, NORMOCEPHALIC - Eye Exam Eye Exam: EOMI, PERRL Pupil Exam: NORMAL ACCOMODATION, PERRL - ENT Exam ENT Exam: Mucous Membranes Moist, Normal External Ear Exam, TM's Normal Bilaterally - Neck Exam Neck Exam: Full ROM, Normal Inspection - Respiratory Exam Respiratory Exam: Clear to Ausculation Bilateral, NORMAL BREATHING PATTERN. absent: Rales, Rhonchi, Wheezes - Cardiovascular Exam Cardiovascular Exam: REGULAR RHYTHM, RRR, +S1, +S2 - GI/Abdominal Exam GI & Abdominal Exam: Soft, Normal Bowel Sounds. absent: Distended, Tenderness - Extremities Exam Extremities Exam: Full ROM, Normal Inspection Additional comments: +1 edema of the bilateral lower extremities - Back Exam Additional comments: two large healed scars on the mid-lower back - Neurological Exam Neurological Exam: Alert, Awake, CN II-XII Intact, Oriented x3 - Psychiatric Exam Psychiatric exam: Normal Affect, Normal Mood - Skin Skin Exam: Intact, Normal Color Assessment and Plan - Assessment and Plan (Free Text) Assessment: 78 yo AA male with syncopal episode brought to [facility] for further care. UTI with EBSL+ E. coli. Left lower leg ulceration. Started on Meropenem for antibiotic treatment. Supportive care. Fluoroquinolone allergies. Looking for 5-7 total days of treatment for UTI. Given ESBL+ E. coli, limited antibiotic choices. Supportive care. Patient overall comfortable. Thank you for allowing me to participate in the care of the patient, we will follow with you.
--- NOTE | 2018-08-22 20:15 | PN ---
DATE: 08/22/2018 The patient was seen and examined at the bedside on 08/22/2018. SUBJECTIVE: Looking comfortable. No fever. No chills. No hematuria. No hematochezia. No headache or dizziness. No chest pain or palpitation. Shortness of breath is better. He is getting the physical therapy. No palpitation. PHYSICAL EXAMINATION: VITAL SIGNS: Temperature 98.6, heart rate 50, blood pressure 120/70, and respiratory rate 18. HEENT: Head; normocephalic and atraumatic. Eyes; PERRLA. Extraocular muscles are intact. Conjunctivae clear. Nose patent. Mucous membranes moist. NECK: Supple. No carotid bruits. No JVD or thyromegaly. CHEST: Bilaterally symmetrical. HEART: S1 and S2 positive. LUNGS: Decreased breath sounds, but clear to auscultation. ABDOMEN: Soft. Bowel sounds positive. No organomegaly. EXTREMITIES: No edema. No cyanosis. NEUROLOGIC: The patient is awake and alert; moving all four extremities. No focal deficit. LABORATORY DATA: White blood cells 4.6, hemoglobin 11.8, hematocrit 36.3, and platelets 158. Sodium 130, potassium 4.7, BUN 11, creatinine 0.8, and chloride 102. MEDICATIONS: Bactroban cream, Dilaudid, iron, Flomax, Lopressor, meropenem, MiraLax, morphine, Neurontin, oxycodone, Pepcid, Protonix, Tylenol, and Zofran. ASSESSMENT AND PLAN: Mr. Alexsander Serra is a 78-year-old male with a history of multiple medical problems; has hypertension, bilateral shoulder pain, cervical radiculopathy noted especially at C3-C4, chronic venous stasis, benign prostatic hyperplasia. The patient has echocardiography done, ejection fraction of 65%, deconditioned, getting antibiotics. Waiting for urologist's input. I spoke with Dr. Rita Merino, this patient is his private patient. Will see Dr. Merino. Meanwhile, getting physical therapy, gastrointestinal and deep venous thrombosis prophylaxis. Repeat labs. Seen by the nuisance wildlife control operator and mill control operator. We will follow up in a.m. Leah Cantu MD
[2018-08-23] MEDS: MEROPENEM 500 MG in NS 500 MG/50 ML BAG IVPB SCH ×3 (05:34→21:26)
[2018-08-23] MEDS: Pantoprazole 40 mg EC Tab PO SCH (05:35)
[2018-08-23] MEDS: Morphine 30 mg SR Tab PO SCH ×2 (09:40→21:21)
[2018-08-23] MEDS: Mupirocin 2% Ointment 15 GM TUBE TOP SCH (09:41)
[2018-08-23] MEDS: Iron Complex Polysacch 150mg Cap PO SCH (09:41)
--- NOTE | 2018-08-23 12:16 | CP.PCM.PN ---
<Jorge Selby - Last Filed: 08/23/18 12:13> Subjective - Date & Time of Evaluation Date of Evaluation: 08/23/18 Time of Evaluation: 12:13 - Subjective Subjective: Podiatry progress note - Drs. Lucia/Sonya 78M seen and evaluated at bedside in TCU. Resting comfortably. Denies pain to LE. For PT today. Denies n/v/f/c today and has no other acute complaints. Objective - Vital Signs/Intake and Output Vital Signs (last 24 hours): Temp Pulse Resp BP Pulse Ox 97.5 F L 54 L 20 137/69 97 08/22/18 16:00 08/23/18 08:01 08/22/18 16:00 08/22/18 17:33 08/22/18 16:00 Intake and Output: 08/23/18 08/23/18 06:59 18:59 Intake Total 540 Output Total 600 Balance -60 - Medications Medications: Current Medications Acetaminophen (Tylenol 325mg Tab) 650 mg PO Q6H PRN PRN Reason: temp above 101 Famotidine (Pepcid) 40 mg PO HS [facility] Last Admin: 08/22/18 21:12 Dose: 40 mg Gabapentin (Neurontin) 600 mg PO TID [facility] Last Admin: 08/23/18 09:42 Dose: 600 mg Hydromorphone HCl (Dilaudid) 0.5 mg IVP Q4H PRN PRN Reason: mild pain ( 1-3) Last Admin: 08/19/18 15:41 Dose: 0.5 mg Meropenem/Sodium Chloride (Merrem Iv 500 Mg/Ns 50 Ml) 500 mg in 50 mls @ 100 ml s/hr IVPB Q8 [facility]; Protocol Last Admin: 08/23/18 05:34 Dose: 100 mls/hr Magnesium Hydroxide (Milk Of Magnesia) 30 ml PO DAILY PRN PRN Reason: Heartburn Last Admin: 08/21/18 13:24 Dose: 30 ml Metoprolol Tartrate (Lopressor) 50 mg PO 0800,1800 [facility] Last Admin: 08/23/18 08:01 Dose: Not Given Morphine Sulfate (Morphine Extended Release Tab) 60 mg PO Q12 [facility] Last Admin: 08/23/18 09:40 Dose: 60 mg Mupirocin (Bactroban Ointment) 0 gm TOP DAILY [facility] Last Admin: 08/23/18 09:41 Dose: 1 appl Ondansetron HCl (Zofran Inj) 4 mg IVP Q6H PRN PRN Reason: Nausea/Vomiting Oxycodone HCl (Oxycodone Immediate Release Tab) 5 mg PO Q6 PRN PRN Reason: moderate pain 4-7 Last Admin: 08/22/18 05:30 Dose: 5 mg Pantoprazole Sodium (Protonix Ec Tab) 40 mg PO 0600 [facility] Last Admin: 08/23/18 05:35 Dose: 40 mg Polyethylene Glycol (Miralax) 17 gm PO HS PRN; Protocol PRN Reason: Constipation Polysaccharide Iron Complex (Ferrex-150) 150 mg PO DAILY [facility] Last Admin: 08/23/18 09:41 Dose: 150 mg Sodium Chloride ([place] Nasal [place]) 0 ml NS Q2H PRN PRN Reason: Nasal congestion Tamsulosin HCl (Flomax) 0.4 mg PO DAILY [facility] Last Admin: 08/23/18 09:41 Dose: 0.4 mg - Labs Labs: 08/20/18 08:31 08/20/18 08:31 - Constitutional Appears: Non-toxic - Head Exam Head Exam: ATRAUMATIC - Extremities Exam Additional comments: LLE focused exam: Vascular: DP/PT 1/4, CFT < 3 seconds, TG warm to warm, +1 edema appreciated to b/l lower extremities Ortho: No pain with calf compression, MMT 5/5, no pain with palpation shaquille wound Neuro: Gross and protective sensation intact Derm: Small linear ulceration appreciated to the proximal 1/3 of the R leg. Mild serous drainage, no clinical signs of infection. - Neurological Exam Neurological Exam: Alert, Awake, Oriented x3 - Psychiatric Exam Psychiatric exam: Normal Affect, Normal Mood Assessment and Plan - Assessment and Plan (Free Text) Assessment: 78M with left lower extremity ulceration; stable, improving Plan: Patient seen and evaluated Discussed with Dr. Khari ZAVALA wound culture; E. Coli Continue local wound care: iodosorb and optifoam Podiatry to see MWF dressing change Continue PT/OT Stable per podiatry for outpatient f/u with Dr. Cobian in wound center Will continue to follow <Jose Lucia - Last Filed: 08/23/18 16:41> Objective - Vital Signs/Intake and Output Vital Signs (last 24 hours): Temp Pulse Resp BP Pulse Ox 97.5 F L 54 L 20 137/69 97 08/22/18 16:00 08/23/18 08:01 08/22/18 16:00 08/22/18 17:33 08/22/18 16:00 Intake and Output: 08/23/18 08/23/18 06:59 18:59 Intake Total 540 Output Total 600 Balance -60 - Medications Medications: Current Medications Acetaminophen (Tylenol 325mg Tab) 650 mg PO Q6H PRN PRN Reason: temp above 101 Famotidine (Pepcid) 40 mg PO HS [facility] Last Admin: 08/22/18 21:12 Dose: 40 mg Gabapentin (Neurontin) 600 mg PO TID [facility] Last Admin: 08/23/18 13:22 Dose: 600 mg Hydromorphone HCl (Dilaudid) 0.5 mg IVP Q4H PRN PRN Reason: mild pain ( 1-3) Last Admin: 08/19/18 15:41 Dose: 0.5 mg Meropenem/Sodium Chloride (Merrem Iv 500 Mg/Ns 50 Ml) 500 mg in 50 mls @ 100 mls/hr IVPB Q8 [facility]; Protocol Last Admin: 08/23/18 13:23 Dose: 100 mls/hr Magnesium Hydroxide (Milk Of Magnesia) 30 ml PO DAILY PRN PRN Reason: Heartburn Last Admin: 08/23/18 13:35 Dose: 30 ml Metoprolol Tartrate (Lopressor) 50 mg PO 0800,1800 [facility] Last Admin: 08/23/18 08:01 Dose: Not Given Morphine Sulfate (Morphine Extended Release Tab) 60 mg PO Q12 [facility] Last Admin: 08/23/18 09:40 Dose: 60 mg Mupirocin (Bactroban Ointment) 0 gm TOP DAILY [facility] Last Admin: 08/23/18 09:41 Dose: 1 appl Ondansetron HCl (Zofran Inj) 4 mg IVP Q6H PRN PRN Reason: Nausea/Vomiting Oxycodone HCl (Oxycodone Immediate Release Tab) 5 mg PO Q6 PRN PRN Reason: moderate pain 4-7 Last Admin: 08/22/18 05:30 Dose: 5 mg Pantoprazole Sodium (Protonix Ec Tab) 40 mg PO 0600 [facility] Last Admin: 08/23/18 05:35 Dose: 40 mg Polyethylene Glycol (Miralax) 17 gm PO HS PRN; Protocol PRN Reason: Constipation Polysaccharide Iron Complex (Ferrex-150) 150 mg PO DAILY [facility] Last Admin: 08/23/18 09:41 Dose: 150 mg Sodium Chloride ([place] Nasal [place]) 0 ml NS Q2H PRN PRN Reason: Nasal congestion Tamsulosin HCl (Flomax) 0.4 mg PO DAILY [facility] Last Admin: 08/23/18 09:41 Dose: 0.4 mg - Labs Labs: 08/20/18 08:31 08/20/18 08:31 Attending/Attestation - Attestation I have personally seen and examined this patient.: Yes I have fully participated in the care of the patient.: Yes I have reviewed all pertinent clinical information, including history, physical exam and plan: Yes
[2018-08-23] MEDS: Magnesium Hydroxide Susp 30 ml UD PO PRN (13:35)
--- NOTE | 2018-08-23 15:22 | PN ---
DATE: 08/23/2018 LOCATION: The patient is in room 321, bed 1. REASON FOR CONSULTATION AND FOLLOWUP: Possible syncope, hypertension, cardiac evaluation, and follow up in deconditioning. SUBJECTIVE: The patient getting physical therapy and during physical therapy, he denies any chest pain, shortness of breath or palpitation. PHYSICAL EXAMINATION: VITAL SIGNS: Blood pressure 137/69, respiration 20, pulse 57 and temperature 97.5. HEENT: Head is normocephalic. Eyes; pupils normal. Conjunctivae are slightly pale. NECK: JVP low. Carotids equal. Thorax AP diameter normal. LUNGS: Clear. CARDIOVASCULAR: S1 and S2. ABDOMEN: Soft. Protuberant. No organomegaly. EXTREMITIES: No clubbing. No cyanosis. Chronic venous stasis on the legs. LABORATORY DATA: On 08/20/2018, WBC 4.6, hemoglobin 11.8, hematocrit 36.3 and platelet 158. Sodium 137, potassium 4.7, BUN 11 and creatinine 0.8. AST and ALT normal. Bilirubin normal. Total protein and albumin are normal. Random glucose 90 and calcium 10.4. DIAGNOSES: Hypertension, bilateral shoulder pain, cervical radiculopathy, cervical fusion C3-C6 and chronic venous stasis. Echocardiogram on medical floor showed ejection fraction 55%. Possible mechanical fall, history of chronic back pain, recurrent urinary tract infection, anemia, moderate pulmonary hypertension with dilated right atrium, dilated left atrium, dilated right ventricle on echo, trace aortic regurgitation, mild mitral regurgitation, moderate tricuspid regurgitation, right ventricular systolic pressure 63 mmHg. PLAN: The patient is symptomatic from cardiac point of view. We will continue physical therapy and continue on antibiotic for urinary tract infection, low dose beta-blockers, analgesics for back pain. Once the patient is stabilized and we can schedule for IV Lexiscan stress test as outpatient. In the meantime, we will continue present therapy and we will follow with you. Brooke Montague MD
[2018-08-23] MEDS: oxyCODONE 5 mg Immediate Release Tab PO PRN (17:18)
--- NOTE | 2018-08-23 20:18 | CP.PCM.PN ---
Subjective - Date & Time of Evaluation Date of Evaluation: 08/23/18 Time of Evaluation: 18:45 - Subjective Subjective: Infectious Disease Follow Up: August 23, 2018 78 yo AA male with a syncopal episode at home. [place] [facility] [place]. Found to have UTI with ESBL+ E. coli. He has multiple medical issues including chronic back pain and ulceration on the left lower leg. The patient is awake and alert now. No make no major complaints at this time. The patient is comfortable at this time. Ambulatory. Objective - Vital Signs/Intake and Output Vital Signs (last 24 hours): Temp Pulse Resp BP Pulse Ox 97.8 F 88 14 142/74 99 08/23/18 10:00 08/23/18 17:15 08/23/18 10:00 08/23/18 17:15 08/23/18 16:51 - Medications Medications: Current Medications Acetaminophen (Tylenol 325mg Tab) 650 mg PO Q6H PRN PRN Reason: temp above 101 Famotidine (Pepcid) 40 mg PO HS [facility] Last Admin: 08/22/18 21:12 Dose: 40 mg Gabapentin (Neurontin) 600 mg PO TID [facility] Last Admin: 08/23/18 17:15 Dose: 600 mg Hydromorphone HCl (Dilaudid) 0.5 mg IVP Q4H PRN PRN Reason: mild pain ( 1-3) Last Admin: 08/19/18 15:41 Dose: 0.5 mg Meropenem/Sodium Chloride (Merrem Iv 500 Mg/Ns 50 Ml) 500 mg in 50 mls @ 100 mls/hr IVPB Q8 [facility]; Protocol Last Admin: 08/23/18 13:23 Dose: 100 mls/hr Magnesium Hydroxide (Milk Of Magnesia) 30 ml PO DAILY PRN PRN Reason: Heartburn Last Admin: 08/23/18 13:35 Dose: 30 ml Metoprolol Tartrate (Lopressor) 50 mg PO 0800,1800 [facility] Last Admin: 08/23/18 17:15 Dose: 50 mg Morphine Sulfate (Morphine Extended Release Tab) 60 mg PO Q12 [facility] Last Admin: 08/23/18 09:40 Dose: 60 mg Mupirocin (Bactroban Ointment) 0 gm TOP DAILY [facility] Last Admin: 08/23/18 09:41 Dose: 1 appl Ondansetron HCl (Zofran Inj) 4 mg IVP Q6H PRN PRN Reason: Nausea/Vomiting Oxycodone HCl (Oxycodone Immediate Release Tab) 5 mg PO Q6 PRN PRN Reason: moderate pain 4-7 Last Admin: 08/23/18 17:18 Dose: 5 mg Pantoprazole Sodium (Protonix Ec Tab) 40 mg PO 0600 [facility] Last Admin: 08/23/18 05:35 Dose: 40 mg Polyethylene Glycol (Miralax) 17 gm PO HS PRN; Protocol PRN Reason: Constipation Polysaccharide Iron Complex (Ferrex-150) 150 mg PO DAILY [facility] Last Admin: 08/23/18 09:41 Dose: 150 mg Sodium Chloride ([place] Nasal [place]) 0 ml NS Q2H PRN PRN Reason: Nasal congestion Tamsulosin HCl (Flomax) 0.4 mg PO DAILY [facility] Last Admin: 08/23/18 09:41 Dose: 0.4 mg - Labs Labs: 08/20/18 08:31 08/20/18 08:31 - Constitutional Appears: Non-toxic, No Acute Distress - Head Exam Head Exam: ATRAUMATIC, NORMOCEPHALIC - Eye Exam Eye Exam: EOMI, PERRL Pupil Exam: NORMAL ACCOMODATION, PERRL - ENT Exam ENT Exam: Mucous Membranes Moist, Normal External Ear Exam, TM's Normal Bilaterally - Neck Exam Neck Exam: Full ROM, Normal Inspection - Respiratory Exam Respiratory Exam: Clear to Ausculation Bilateral, NORMAL BREATHING PATTERN. absent: Rales, Rhonchi, Wheezes - Cardiovascular Exam Cardiovascular Exam: REGULAR RHYTHM, RRR, +S1, +S2 - GI/Abdominal Exam GI & Abdominal Exam: Soft, Normal Bowel Sounds. absent: Distended, Tenderness - Extremities Exam Extremities Exam: Full ROM, Normal Inspection Additional comments: +1 edema of the bilateral lower extremities - Back Exam Additional comments: two large healed scars on the mid-lower back - Neurological Exam Neurological Exam: Alert, Awake, CN II-XII Intact, Oriented x3 - Psychiatric Exam Psychiatric exam: Normal Affect, Normal Mood - Skin Skin Exam: Intact, Normal Color Assessment and Plan - Assessment and Plan (Free Text) Assessment: 78 yo AA male with syncopal episode [place] [facility] [place]. UTI with EBSL+ E. coli. Left lower leg ulceration. Started on Meropenem for antibiotic treatment. Supportive care. Fluoroquinolone allergies. Looking for 5-7 total days of treatment for UTI. Given ESBL+ E. coli, limited antibiotic choices. Nearing completion. Supportive care. Patient overall comfortable. Thank you for allowing me to participate in the care of the patient, we will fol low with you.
[2018-08-24] MEDS: oxyCODONE 5 mg Immediate Release Tab PO PRN (02:07)
[2018-08-24] MEDS: MEROPENEM 500 MG in NS 500 MG/50 ML BAG IVPB SCH ×3 (05:27→21:19)
[2018-08-24] MEDS: Pantoprazole 40 mg EC Tab PO SCH (05:28)
[2018-08-24] MEDS: HYDROmorphone 0.5 mg/0.5 ml ISec IVP PRN (05:33)
--- NOTE | 2018-08-24 08:33 | PN ---
DATE: 08/23/2018 SUBJECTIVE: The patient is a 78-year-old male. The patient was seen and examined at bedside on 08/23/2018. Looking comfortable. No fever. No chills. No hematuria. No hematochezia. No headache. No dizziness. No chest pain. No palpitation. Getting physical therapy. PHYSICAL EXAMINATION: VITAL SIGNS: Temperature 98.1, blood pressure 130/70, respiratory rate 20, HEENT: Head: Normocephalic and atraumatic. Eyes: PERRLA. Extraocular muscles intact. Conjunctivae clear. Nose patent. NECK: Supple. No carotid bruits. No JVD or thyromegaly. CHEST: Bilaterally symmetrical. HEART: S1 and S2 positive. LUNGS: Clear to auscultation. ABDOMEN: Soft. Bowel sounds present. No organomegaly. EXTREMITIES: No edema. No cyanosis. NEUROLOGIC: The patient is awake and alert. Follows simple commands. LABORATORY DATA: White blood cells 4.6, hemoglobin 11.8, hematocrit 36.2, and platelets 158. Sodium 137, potassium 4.7, BUN 11, creatinine 0.8. ASSESSMENT AND PLAN: The patient is a 78-year-old male with multiple medical problems of hypertension, bilateral shoulder pain, degenerative joint disease, cervical radiculopathy, chronic venous stasis. Echocardiography shows ejection fraction 55%. History of mechanical fall, history of chronic back pain, recurrent urinary tract infection, pulmonary hypertension, dilated right atrium, dilated left atrium. Gastrointestinal and deep venous thrombosis prophylaxis. The patient is getting better. Getting physical therapy. Infectious Disease is on the case. Cardiology and Podiatry are on the case. Repeat labs. We will follow up. Leah Cantu MD MTDRyan
[2018-08-24] MEDS: Morphine 30 mg SR Tab PO SCH ×2 (09:50→21:20)
[2018-08-24] MEDS: Mupirocin 2% Ointment 15 GM TUBE TOP SCH (10:46)
[2018-08-24] MEDS: Iron Complex Polysacch 150mg Cap PO SCH (10:47)
--- NOTE | 2018-08-24 13:23 | PN ---
DATE: 08/24/2018 SUBJECTIVE: The patient was seen and examined at the bedside on 08/24/2018. Looking comfortable. No fever. No chills. No hematuria. No hematochezia. No headache. No dizziness. No chest pain. No palpitation. Sometimes he is coughing with shortness of breath. Night was unremarkable. PHYSICAL EXAMINATION: VITAL SIGNS: Temperature 97.8, pulse 58, blood pressure 120/62, respiratory rate 20, pulse oxygenation 97%. HEENT: Head normocephalic and atraumatic. Eyes, PERRLA. Extraocular muscles are intact. Conjunctivae clear. Nose patent. Mucous membranes moist. NECK: Supple. No carotid bruits. No JVD or thyromegaly. CHEST: Bilaterally symmetrical. HEART: S1, S2 positive. LUNGS: Clear to auscultation. ABDOMEN: Soft. Bowel sounds present. No organomegaly. EXTREMITIES: No edema, no cyanosis. NEUROLOGICAL: The patient is awake, alert. Moving all four extremities. No focal deficits. MEDICATIONS: Bactroban, Dilaudid, iron, Flomax, Lopressor, Merrem, milk of magnesia, MiraLax, Glucophage, [place] nasal spray, oxycodone, Pepcid, Zofran, Tylenol. LABORATORY DATA: We do not have labs today, but I reviewed old labs. ASSESSMENT AND PLAN: Mr. 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 Echocardiography done by the optical fabricator, chronic obstructive pulmonary disease, rule out obstructive sleep apnea syndrome, chronic pain syndrome. Infectious Disease is on the case. Podiatry is on the case. The patient has urinary tract infection with extended-spectrum beta-lactamase plus Escherichia coli, chronic back pain and ulceration on the left lower leg has dressing. Physical therapy, out of bed. Repeat labs. We will follow up. Leah Cantu MD
--- NOTE | 2018-08-24 14:11 | PN ---
DATE: 08/24/2018 REASON FOR CONSULTATION AND FOLLOWUP: Possible syncope, hypertension, cardiac evaluation, and follow up deconditioning of the body. SUBJECTIVE: The patient denies any chest pain, shortness of breath or any palpitation, getting rehab therapy, feels better. OBJECTIVE: GENERAL: Not in apparent distress. VITAL SIGNS: Temperature afebrile, hear rate 88, blood pressure 142/74. HEENT: PERRLA. Extraocular muscles intact. NECK: Supple. No carotid bruits or thyromegaly. CHEST: Clear to auscultation. HEART: S1 and S2 regular. ABDOMEN: Soft. EXTREMITIES: Clubbing, cyanosis negative. LABORATORY DATA: Blood workup as follows; WBC 4.6, hemoglobin , hematocrit 36.3, platelet count 158. Chemistry showed sodium 137, potassium 4.0, chloride 102, carbon dioxide 12, anion gap of 13, BUN 11, creatinine 0.8. IMPRESSION: A 78-year-old male with past medical history significant for hypertension, history of shoulder pain, cervical radiculopathy, cervical effusion C3-C6, chronic venous stasis, admitted after fall. Echo revealed ejection fraction 55% possible mechanical fall, history of chronic back pain, recurrent urinary tract infection, anemia, moderate pulmonary hypertension, dilated right atrium, right ventricular systolic pressure 63. RECOMMENDATION: outpatient. Discussed with the patient and name has given to Cardiology to schedule stress test in 2 to 3 weeks, [place] as an outpatient. In interim continue treatment for local wound care. Continue metoprolol 50 mg twice a day, adequate analgesia. Thank you Dr. Cantu providing us the opportunity in taking care of the patient, Alexsander Serra. Brooke Chapa MD
[2018-08-24] MEDS ORDERED: Benzocaine/Menthol (Cepacol) Lozenge MT PRN (21:08)
--- NOTE | 2018-08-25 00:47 | CP.PCM.PN ---
Subjective - Date & Time of Evaluation Date of Evaluation: 08/24/18 Time of Evaluation: 23:45 - Subjective Subjective: Infectious Disease Follow Up: August 24, 2018 78 yo AA male with a syncopal episode at home. [place] [facility] [place]. Found to have UTI with ESBL+ E. coli. He has multiple medical issues including chronic back pain and ulceration on the left lower leg. The patient is awake and alert now. No make no major complaints at this time. The patient is comfortable at this time. Ambulatory. Objective - Vital Signs/Intake and Output Vital Signs (last 24 hours): Temp Pulse Resp BP Pulse Ox 97.8 F 67 20 137/69 97 08/24/18 16:00 08/24/18 17:06 08/24/18 16:00 08/24/18 17:06 08/24/18 16:00 - Medications Medications: Current Medications Acetaminophen (Tylenol 325mg Tab) 650 mg PO Q6H PRN PRN Reason: temp above 101 Albuterol/Ipratropium (Duoneb 3 Mg/0.5 Mg (3 Ml) Ud) 3 ml IH [id number] SOLANGE Benzocaine/Menthol (Cepacol Sore Throat) 1 katt MT Q2H PRN PRN Reason: Sore Throat Famotidine (Pepcid) 40 mg PO HS [facility] Last Admin: 08/24/18 21:22 Dose: 40 mg Fluticasone Propionate (Flonase) 1 actuation NS BID [facility] Gabapentin (Neurontin) 600 mg PO TID [facility] Last Admin: 08/24/18 17:07 Dose: 600 mg Hydromorphone HCl (Dilaudid) 0.5 mg IVP Q4H PRN PRN Reason: mild pain ( 1-3) Last Admin: 08/24/18 05:33 Dose: 0.5 mg Meropenem/Sodium Chloride (Merrem Iv 500 Mg/Ns 50 Ml) 500 mg in 50 mls @ 100 mls/hr IVPB Q8 [facility]; Protocol Last Admin: 08/24/18 21:19 Dose: 100 mls/hr Magnesium Hydroxide (Milk Of Magnesia) 30 ml PO DAILY PRN PRN Reason: Heartburn Last Admin: 08/23/18 13:35 Dose: 30 ml Metoprolol Tartrate (Lopressor) 50 mg PO 0800,1800 [facility] Last Admin: 08/24/18 17:06 Dose: 50 mg Montelukast Sodium (Singulair) 10 mg PO HS [facility] Last Admin: 08/24/18 21:23 Dose: 10 mg Morphine Sulfate (Morphine Extended Release Tab) 60 mg PO Q12 [facility] Last Admin: 08/24/18 21:20 Dose: 60 mg Mupirocin (Bactroban Ointment) 0 gm TOP DAILY [facility] Last Admin: 08/24/18 10:46 Dose: Not Given Ondansetron HCl (Zofran Inj) 4 mg IVP Q6H PRN PRN Reason: Nausea/Vomiting Oxycodone HCl (Oxycodone Immediate Release Tab) 5 mg PO Q6 PRN PRN Reason: moderate pain 4-7 Last Admin: 08/24/18 02:07 Dose: 5 mg Pantoprazole Sodium (Protonix Ec Tab) 40 mg PO 0600 [facility] Last Admin: 08/24/18 05:28 Dose: 40 mg Polyethylene Glycol (Miralax) 17 gm PO HS PRN; Protocol PRN Reason: Constipation Polysaccharide Iron Complex (Ferrex-150) 150 mg PO DAILY [facility] Last Admin: 08/24/18 10:47 Dose: 150 mg Prednisone (Prednisone Tab) 20 mg PO DAILY [facility] Sodium Chloride ([place] Nasal [place]) 0 ml NS Q2H PRN PRN Reason: Nasal congestion Tamsulosin HCl (Flomax) 0.4 mg PO DAILY [facility] Last Admin: 08/24/18 10:47 Dose: 0.4 mg - Labs Labs: 08/20/18 08:31 08/20/18 08:31 - Constitutional Appears: Non-toxic, No Acute Distress - Head Exam Head Exam: ATRAUMATIC, NORMOCEPHALIC - Eye Exam Eye Exam: EOMI, PERRL Pupil Exam: NORMAL ACCOMODATION, PERRL - ENT Exam ENT Exam: Mucous Membranes Moist, Normal External Ear Exam, TM's Normal Bilaterally - Neck Exam Neck Exam: Full ROM, Normal Inspection - Respiratory Exam Respiratory Exam: Clear to Ausculation Bilateral, NORMAL BREATHING PATTERN. absent: Rales, Rhonchi, Wheezes - Cardiovascular Exam Cardiovascular Exam: REGULAR RHYTHM, RRR, +S1, +S2 - GI/Abdominal Exam GI & Abdominal Exam: Soft, Normal Bowel Sounds. absent: Distended, Tenderness - Extremities Exam Extremities Exam: Full ROM, Pedal Edema Additional comments: +1 edema of the bilateral lower extremities - Back Exam Additional comments: two large healed scars on the mid-lower back - Neurological Exam Neurological Exam: Alert, Awake, CN II-XII Intact, Oriented x3 - Psychiatric Exam Psychiatric exam: Normal Affect, Normal Mood - Skin Skin Exam: Intact, Normal Color Assessment and Plan - Assessment and Plan (Free Text) Assessment: 78 yo AA male with syncopal episode [place] [facility] [place]. UTI with EBSL+ E. coli. Left lower leg ulceration. Started on Meropenem for antibiotic treatment. Supportive care. Fluoroquinolone allergies. Looking for 5-7 total days of treatment for UTI. Given ESBL+ E. coli, limited antibiotic choices. Nearing completion. Supportive care. Patient overall comfortable. Thank you for allowing me to participate in the care of the patient, we will follow with you.
[2018-08-25] MEDS: Albuterol-Ipratrop 3 mg / 0.5 (3 ml) UD IH SCH ×4 (01:14→20:53)
[2018-08-25] MEDS: oxyCODONE 5 mg Immediate Release Tab PO PRN (03:08)
[2018-08-25] MEDS: MEROPENEM 500 MG in NS 500 MG/50 ML BAG IVPB SCH ×2 (05:45→13:13)
[2018-08-25] MEDS: Pantoprazole 40 mg EC Tab PO SCH (05:46)
[2018-08-25 07:18] LABS: HEMOGLOBIN 11.4 g/dL (14.0-18.0); MEAN CELL VOLUME 87.7 fl (80.0-105.0); MEAN CORPUSCULAR HEMOGLOBIN 28.7 pg (25.0-35.0); MEAN CORPUSCULAR HGB CONC 32.8 g/dl (31.0-37.0); MEAN PLATELET VOLUME 8.9 fl (7.0-11.0); RBC 3.97 10^6/uL (3.5-6.1); RED CELL DISTRIBUTION WIDTH 13.6 % (11.5-14.5); WHITE BLOOD COUNT 4.5 10^3/uL (4.5-11.0)
[2018-08-25 07:54] LABS: BLOOD UREA NITROGEN 18 mg/dL (7-21); CALCIUM 12.2 mg/dL (8.4-10.5); GFR NON-AFRICAN AMERICAN > 60
--- NOTE | 2018-08-25 07:58 | CON ---
DATE: 08/24/2018 PULMONARY CONSULT REFERRING PHYSICIAN: Dr. Cantu REASON FOR CONSULT: Cough, shortness of breath, may have sleep apnea syndrome. HISTORY OF PRESENT ILLNESS: This is a 78-year-old gentleman with past medical history significant for hypertension, history of degenerative joint disease, history of cervical surgery with fusion of C3-C6, chronic stasis ulcer of the lower extremity with venous insufficiency, originally admitted with syncope. Had an ESBL, cause UTI. Complaining about cough, short of breath. Admitted to have snoring, daytime sleepy, and tired. No nausea, no vomiting, no diarrhea. PAST MEDICAL HISTORY: As per history of present illness. Also has pulmonary hypertension. ALLERGIES: TO CIPRO. SOCIAL HISTORY: Denies any active smoking. No alcohol abuse. FAMILY HISTORY: No significant cardiopulmonary disease reported. MEDICATIONS: He is on Bactroban ointment to affected area, Dilaudid 0.5 mg every 4 hours p.r.n., Ferrex 150 mg daily, Flomax 0.4 mg daily, metoprolol tartrate 50 mg twice a day, meropenem 500 mg every 8 hours, MiraLax 17 g h.s. p.r.n., morphine sulfate 60 mg every 12 hours, Neurontin 600 mg three times a day, nasal saline every 2 hours p.r.n., oxycodone immediate release 5 mg every 6 hours p.r.n., Pepcid 40 mg daily, Protonix 40 mg daily, Tylenol p.r.n., Zofran p.r.n. basis. REVIEW OF SYSTEMS: No headache. Has some rhinitis, postnasal drip, cough, short of breath with exertion. No chest pain. No nausea or vomiting. No diarrhea. Has leg edema. Neurologic: Awake, alert, follows simple commands. PHYSICAL EXAMINATION: VITAL SIGNS: Temperature is 98, heart rate 67, respiratory rate is 20, blood pressure 137/69. HEENT: Moist mucous membrane. Crowded airway. Mallampati score is 4. NECK: Supple. No JVD. LUNGS: Have a few scattered rhonchi. HEART: S1, S2. ABDOMEN: Soft, nontender. No organomegaly. EXTREMITIES: Has lymphedema. NEUROLOGIC: Awake, alert, follows simple commands. LABORATORY DATA: Shows hemoglobin 11.8, hematocrit 36.3, WBC 4.6, platelets 158. Sodium 137, potassium 4.7, chloride 104, bicarbonate 27, BUN 11, creatinine 0.8, glucose 90, calcium 10.4, AST 48, ALT 15, alk phos is 80, albumin is 3.6. IMPRESSION AND PLAN: 1. Pulmonary hypertension. 2. Morbid obesity. 3. May have sleep apnea syndrome. 4. Chronic pain syndrome. 5. Severe degenerative joint disease. 6. History of cervical C3-C6 fusion. 7. Hypertension. 8. Lymphedema, lower extremity. 9. Being treated for extended-spectrum beta-lactamases, cause urinary tract infection. 10. Anemia. We will add Flonase one spray each nostril twice a day, Singulair 10 mg daily. May give short course of prednisone for acute bronchitis. Continue antibiotics. Discontinue Pepcid and Protonix for a few days. GERD precaution. We recommend PFT, attended sleep study upon discharge as an outpatient, pain management, fall precaution. Thank you and we will follow with you. Brooke Orourke MD
[2018-08-25] MEDS: Mupirocin 2% Ointment 15 GM TUBE TOP SCH (09:22)
[2018-08-25] MEDS: Iron Complex Polysacch 150mg Cap PO SCH (09:22)
[2018-08-25] MEDS: Fluticasone Nasal 50 mcg/Spray NS SCH ×2 (09:23→17:10)
[2018-08-25] MEDS: Morphine 30 mg SR Tab PO SCH ×2 (09:26→21:14)
--- NOTE | 2018-08-25 09:36 | CP.PCM.PN ---
<Jorge Selby - Last Filed: 08/25/18 09:33> Subjective - Date & Time of Evaluation Date of Evaluation: 08/25/18 Time of Evaluation: 09:33 - Subjective Subjective: Podiatry progress note - Drs. Lucia/Sonya 78M seen and evaluated at bedside in TCU with Dr. Lucia. Seen resting comfortably with no pedal complaints. Denies n/v/f/c today and has no other acute complaints. Objective - Vital Signs/Intake and Output Vital Signs (last 24 hours): Temp Pulse Resp BP Pulse Ox 98 F 88 24 154/84 H 98 08/25/18 06:00 08/25/18 08:00 08/25/18 06:00 08/25/18 08:00 08/25/18 06:00 - Medications Medications: Current Medications Acetaminophen (Tylenol 325mg Tab) 650 mg PO Q6H PRN PRN Reason: temp above 101 Albuterol/Ipratropium (Duoneb 3 Mg/0.5 Mg (3 Ml) Ud) 3 ml IH [id number] COUNTS INCLUDE 234 BEDS AT THE [facility] Last Admin: 08/25/18 07:25 Dose: 3 ml Benzocaine/Menthol (Cepacol Sore Throat) 1 katt MT Q2H PRN PRN Reason: Sore Throat Famotidine (Pepcid) 40 mg PO HS COUNTS INCLUDE 234 BEDS AT THE [facility] Last Admin: 08/24/18 21:22 Dose: 40 mg Fluticasone Propionate (Flonase) 1 actuation NS BID COUNTS INCLUDE 234 BEDS AT THE [facility] Last Admin: 08/25/18 09:23 Dose: 1 actuation Gabapentin (Neurontin) 600 mg PO TID COUNTS INCLUDE 234 BEDS AT THE [facility] Last Admin: 08/25/18 09:24 Dose: 600 mg Hydromorphone HCl (Dilaudid) 0.5 mg IVP Q4H PRN PRN Reason: mild pain ( 1-3) Last Admin: 08/24/18 05:33 Dose: 0.5 mg Meropenem/Sodium Chloride (Merrem Iv 500 Mg/Ns 50 Ml) 500 mg in 50 mls @ 100 mls/hr IVPB Q8 COUNTS INCLUDE 234 BEDS AT THE [facility]; Protocol Last Admin: 08/25/18 05:45 Dose: 100 mls/hr Magnesium Hydroxide (Milk Of Magnesia) 30 ml PO DAILY PRN PRN Reason: Heartburn Last Admin: 08/23/18 13:35 Dose: 30 ml Metoprolol Tartrate (Lopressor) 50 mg PO 0800,1800 COUNTS INCLUDE 234 BEDS AT THE [facility] Last Admin: 08/25/18 08:00 Dose: 50 mg Montelukast Sodium (Singulair) 10 mg PO HS COUNTS INCLUDE 234 BEDS AT THE [facility] Last Admin: 08/24/18 21:23 Dose: 10 mg Morphine Sulfate (Morphine Extended Release Tab) 60 mg PO Q12 COUNTS INCLUDE 234 BEDS AT THE [facility] Last Admin: 08/25/18 09:26 Dose: 60 mg Mupirocin (Bactroban Ointment) 0 gm TOP DAILY COUNTS INCLUDE 234 BEDS AT THE [facility] Last Admin: 08/25/18 09:22 Dose: 1 appl Ondansetron HCl (Zofran Inj) 4 mg IVP Q6H PRN PRN Reason: Nausea/Vomiting Oxycodone HCl (Oxycodone Immediate Release Tab) 5 mg PO Q6 PRN PRN Reason: moderate pain 4-7 Last Admin: 08/25/18 03:08 Dose: 5 mg Pantoprazole Sodium (Protonix Ec Tab) 40 mg PO 0600 COUNTS INCLUDE 234 BEDS AT THE [facility] Last Admin: 08/25/18 05:46 Dose: 40 mg Polyethylene Glycol (Miralax) 17 gm PO HS PRN; Protocol PRN Reason: Constipation Polysaccharide Iron Complex (Ferrex-150) 150 mg PO DAILY COUNTS INCLUDE 234 BEDS AT THE [facility] Last Admin: 08/25/18 09:22 Dose: 150 mg Prednisone (Prednisone Tab) 20 mg PO 0800 COUNTS INCLUDE 234 BEDS AT THE [facility]; Protocol Sodium Chloride ([place] Nasal [place]) 0 ml NS Q2H PRN PRN Reason: Nasal congestion Tamsulosin HCl (Flomax) 0.4 mg PO DAILY COUNTS INCLUDE 234 BEDS AT THE [facility] Last Admin: 08/25/18 09:22 Dose: 0.4 mg - Labs Labs: 08/25/18 07:00 08/25/18 07:00 - Constitutional Appears: Non-toxic - Head Exam Head Exam: ATRAUMATIC - Extremities Exam Additional comments: LLE focused exam: VASC: DP/PT 1/4, CFT < 3 seconds, TG warm to warm, +1 edema appreciated to b/l lower extremities ORTHO: No pain with calf compression, MMT 5/5, no pain with palpation shaquille wound NEURO: Gross and protective sensation intact DERM: Small linear ulceration appreciated to the proximal 1/3 of the R leg. No drainage or malodor appreciated, no clinical signs of infection. - Neurological Exam Neurological Exam: Alert, Awake, Oriented x3 - Psychiatric Exam Psychiatric exam: Normal Affect Assessment and Plan - Assessment and Plan (Free Text) Assessment: 78M with left lower extremity ulceration; stable, improving Plan: Patient seen and evaluated with Dr. Khari ZAVALA wound culture; E. Coli Dressing instruction: iodosorb and optifoam Podiatry to see MWF dressing change Continue PT/OT Stable per podiatry for outpatient f/u with Dr. Cobian in wound center Will continue to follow <Jose Lucia - Last Filed: 08/25/18 19:00> Objective - Vital Signs/Intake and Output Vital Signs (last 24 hours): Temp Pulse Resp BP Pulse Ox 98.3 F 60 20 145/68 99 08/25/18 16:00 08/25/18 17:10 08/25/18 16:00 08/25/18 17:10 08/25/18 16:00 - Medications Medications: Current Medications Acetaminophen (Tylenol 325mg Tab) 650 mg PO Q6H PRN PRN Reason: temp above 101 Albuterol/Ipratropium (Duoneb 3 Mg/0.5 Mg (3 Ml) Ud) 3 ml IH [id number] COUNTS INCLUDE 234 BEDS AT THE [facility] Last Admin: 08/25/18 13:02 Dose: 3 ml Benzocaine/Menthol (Cepacol Sore Throat) 1 katt MT Q2H PRN PRN Reason: Sore Throat Famotidine (Pepcid) 40 mg PO HS COUNTS INCLUDE 234 BEDS AT THE [facility] Last Admin: 08/24/18 21:22 Dose: 40 mg Fluticasone Propionate (Flonase) 1 actuation NS BID COUNTS INCLUDE 234 BEDS AT THE [facility] Last Admin: 08/25/18 17:10 Dose: 1 actuation Gabapentin (Neurontin) 600 mg PO TID COUNTS INCLUDE 234 BEDS AT THE [facility] Last Admin: 08/25/18 17:11 Dose: 600 mg Hydromorphone HCl (Dilaudid) 0.5 mg IVP Q4H PRN PRN Reason: mild pain ( 1-3) Last Admin: 08/24/18 05:33 Dose: 0.5 mg Magnesium Hydroxide (Milk Of Magnesia) 30 ml PO DAILY PRN PRN Reason: Heartburn Last Admin: 08/23/18 13:35 Dose: 30 ml Metoprolol Tartrate (Lopressor) 50 mg PO 0800,1800 COUNTS INCLUDE 234 BEDS AT THE [facility] Last Admin: 08/25/18 17:10 Dose: 50 mg Montelukast Sodium (Singulair) 10 mg PO HS COUNTS INCLUDE 234 BEDS AT THE [facility] Last Admin: 08/24/18 21:23 Dose: 10 mg Morphine Sulfate (Morphine Extended Release Tab) 60 mg PO Q12 COUNTS INCLUDE 234 BEDS AT THE [facility] Last Admin: 08/25/18 09:26 Dose: 60 mg Mupirocin (Bactroban Ointment) 0 gm TOP DAILY COUNTS INCLUDE 234 BEDS AT THE [facility] Last Admin: 08/25/18 09:22 Dose: 1 appl Ondansetron HCl (Zofran Inj) 4 mg IVP Q6H PRN PRN Reason: Nausea/Vomiting Oxycodone HCl (Oxycodone Immediate Release Tab) 5 mg PO Q6 PRN PRN Reason: moderate pain 4-7 Last Admin: 08/25/18 03:08 Dose: 5 mg Pantoprazole Sodium (Protonix Ec Tab) 40 mg PO 0600 COUNTS INCLUDE 234 BEDS AT THE [facility] Last Admin: 08/25/18 05:46 Dose: 40 mg Polyethylene Glycol (Miralax) 17 gm PO HS PRN; Protocol PRN Reason: Constipation Polysaccharide Iron Complex (Ferrex-150) 150 mg PO DAILY COUNTS INCLUDE 234 BEDS AT THE [facility] Last Admin: 08/25/18 09:22 Dose: 150 mg Prednisone (Prednisone Tab) 20 mg PO 0800 [facility]; Protocol Sodium Chloride ([place] Nasal [place]) 0 ml NS Q2H PRN PRN Reason: Nasal congestion Tamsulosin HCl (Flomax) 0.4 mg PO DAILY COUNTS INCLUDE 234 BEDS AT THE [facility] Last Admin: 08/25/18 09:22 Dose: 0.4 mg - Labs Labs: 08/25/18 07:00 08/25/18 07:00 Attending/Attestation - Attestation I have personally seen and examined this patient.: Yes I have fully participated in the care of the patient.: Yes I have reviewed all pertinent clinical information, including history, physical exam and plan: Yes
--- NOTE | 2018-08-25 12:22 | PN ---
DATE: 08/25/2018 PULMONARY PROGRESS NOTE REFERRING PHYSICIAN: Dr. Leah Cantu. SUBJECTIVE: The patient is seen sitting at bedside. No acute distress. No overnight events reported. No headache, rhinitis, cough, shortness of breath, chest pain, abdominal pain, nausea, vomiting, diarrhea or leg pain reported at this time. OBJECTIVE: GENERAL: No acute distress. VITAL SIGNS: Blood pressure 154/84, pulse 88, temperature 98, and oxygen saturation 98% on room air. HEENT: Moist mucous membrane. Mallampati score 4. Crowded airway. NECK: Supple. No JVD. LUNGS: Fair airflow bilaterally. CARDIOVASCULAR: S1 and S2. ABDOMEN: Soft and nontender. No distention. No organomegaly. EXTREMITIES: Lymphedema, bilateral lower extremities. Ulceration, left lower extremity. NEUROLOGIC: Awake, alert, and verbal. Following commands. MEDICATIONS: Reviewed. Tylenol 650 mg every 6 hours p.r.n. for temperature above 101, DuoNeb 3 mL inhalation every 6 hours, Cepacol throat lozenges every 2 hours p.r.n., Pepcid 40 mg at bedtime, Flonase nasal spray, Neurontin 600 mg three times a day, Dilaudid 0.5 mg IV push every 4 hours p.r.n. for mild pain, milk of magnesia 30 mL p.o. daily p.r.n., meropenem 500 mg every 8 hours, metoprolol tartrate 50 mg twice a day, Singulair 10 mg at bedtime, morphine extended release 60 mg every 12 hours, Bactroban topically daily to affected area, Zofran 4 mg every 6 hours p.r.n, oxycodone 5 mg every 6 hours p.r.n., Protonix 40 mg daily, MiraLax 17 g at bedtime p.r.n., Ferrex 150 mg daily, prednisone 20 mg daily, [place] nasal spray every 2 hours p.r.n., and Flomax 0.4 mg daily. LABORATORY DATA: Reviewed. WBC 4.5, RBC 3.97, hemoglobin 11.4, hematocrit 34.8 and platelets 165. Sodium 137, potassium 5, chloride 105, carbon dioxide 28, anion gap 9, BUN 18, creatinine 0.7, GFR greater than 60, random glucose 95, and calcium 12.2. IMPRESSION AND PLAN: Pulmonary hypertension, morbid obesity, suspected sleep apnea syndrome, chronic pain syndrome, degenerative joint disease, history of cervical C3-C6 fusion, hypertension, lymphedema lower extremities, being treated for extended-spectrum beta-lactamase urinary tract infection, anemia, chronic venous stasis, and chronic obstructive pulmonary disease. Pulmonary point of view, continue Flonase nasal spray, leukotriene inhibitors, and inhaled bronchodilators. We will taper off steroids in the next couple of days. Continue antibiotics per Infectious Disease, gastric prophylaxis, sleep apnea precaution, head of bed elevated at 45 degrees, and gastroesophageal reflux disease precaution. We recommend the patient have full pulmonary function test as outpatient to assess chronic lung disease. We recommend the patient have attended sleep study as outpatient to evaluate for suspected sleep apnea syndrome. Pain management. This patient was seen and examined with Dr. Orourke. Discussed assessment and plan as described above. This patient was seen and examined with Enrique Carter, nurse practitioner. Discussed assessment and plan as described above. Thank you for this consult. We will follow with you. Enrique Carter APN Brooke Orourke MD AMANDA
--- NOTE | 2018-08-25 12:52 | PN ---
DATE: 08/25/2018 REASON FOR CONSULTATION: Followup possible syncope, hypertension, cardiac evaluation, deconditioning of the body. SUBJECTIVE: The patient denies any chest pain, shortness of breath, any palpitation, not in apparent distress, getting ready for rehab. PHYSICAL EXAMINATION: VITAL SIGNS: Temperature afebrile, heart rate 88, blood pressure 154/84. HEENT: PERRLA. Extraocular muscles are intact. NECK: Supple. No carotid or thyromegaly. CHEST: Clear to auscultation. HEART: S1 and S2 regular. ABDOMEN: Soft. EXTREMITIES: Clubbing or cyanosis negative. LABORATORY DATA: Blood workup: WBC 4.5, hemoglobin 11.4, hematocrit 34.8, and platelet count 165. Chemistry showed sodium 137, potassium 5, chloride 105, carbon dioxide 28, anion gap of 9, BUN 18, creatinine 0.7, calcium 12.2 elevated. IMPRESSION: A 78-year-old male with past medical history significant for hypertension, shoulder pain, cervical radiculopathy, cervical effusion C3-C6, chronic venous stasis, admitted for fall. Echocardiogram revealed ejection fraction 55%, possible mechanical fall, history of chronic back pain, recurrent urinary tract infection, anemia, moderate pulmonary hypertension, dilated right atrium, dilated right ventricle, right ventricular systolic pressure of 63. RECOMMENDATIONS: The patient is scheduled for stress test as outpatient 2 to 3 weeks. Yesterday, Lisa went there to talk to the patient. The patient initially refused this morning. Discussed with the patient. The patient is agreeable. We will schedule a stress test as outpatient. The patient needs workup for repeat calcium tomorrow. If remains elevated, consider workup for metastatic disease. Thank you Dr. Cantu for providing us the opportunity in taking care of patient, Alexsander Serra. Brooke Chapa MD
--- NOTE | 2018-08-25 16:20 | CP.PCM.PN ---
Subjective - Date & Time of Evaluation Date of Evaluation: 08/25/18 Time of Evaluation: 14:00 - Subjective Subjective: Infectious Disease Follow Up: August 25, 2018 78 yo AA male with a syncopal episode at home. Brought to [facility] for [place]. Found to have UTI with ESBL+ E. coli. He has multiple medical issues including chronic back pain and ulceration on the left lower leg. The patient is awake and alert now. No major complaints at this time. The patient is comfortable at this time. Ambulatory. Tolerating Meropenem. Objective - Vital Signs/Intake and Output Vital Signs (last 24 hours): Temp Pulse Resp BP Pulse Ox 98 F 88 24 154/84 H 98 08/25/18 06:00 08/25/18 08:00 08/25/18 06:00 08/25/18 08:00 08/25/18 06:00 - Medications Medications: Current Medications Acetaminophen (Tylenol 325mg Tab) 650 mg PO Q6H PRN PRN Reason: temp above 101 Albuterol/Ipratropium (Duoneb 3 Mg/0.5 Mg (3 Ml) Ud) 3 ml IH [id number] [facility] Last Admin: 08/25/18 13:02 Dose: 3 ml Benzocaine/Menthol (Cepacol Sore Throat) 1 katt MT Q2H PRN PRN Reason: Sore Throat Famotidine (Pepcid) 40 mg PO HS [facility] Last Admin: 08/24/18 21:22 Dose: 40 mg Fluticasone Propionate (Flonase) 1 actuation NS BID [facility] Last Admin: 08/25/18 09:23 Dose: 1 actuation Gabapentin (Neurontin) 600 mg PO TID [facility] Last Admin: 08/25/18 13:15 Dose: 600 mg Hydromorphone HCl (Dilaudid) 0.5 mg IVP Q4H PRN PRN Reason: mild pain ( 1-3) Last Admin: 08/24/18 05:33 Dose: 0.5 mg Meropenem/Sodium Chloride (Merrem Iv 500 Mg/Ns 50 Ml) 500 mg in 50 mls @ 100 mls/hr IVPB Q8 [facility]; Protocol Last Admin: 08/25/18 13:13 Dose: 100 mls/hr Magnesium Hydroxide (Milk Of Magnesia) 30 ml PO DAILY PRN PRN Reason: Heartburn Last Admin: 08/23/18 13:35 Dose: 30 ml Metoprolol Tartrate (Lopressor) 50 mg PO 0800,1800 [facility] Last Admin: 08/25/18 08:00 Dose: 50 mg Montelukast Sodium (Singulair) 10 mg PO HS [facility] Last Admin: 08/24/18 21:23 Dose: 10 mg Morphine Sulfate (Morphine Extended Release Tab) 60 mg PO Q12 [facility] Last Admin: 08/25/18 09:26 Dose: 60 mg Mupirocin (Bactroban Ointment) 0 gm TOP DAILY [facility] Last Admin: 08/25/18 09:22 Dose: 1 appl Ondansetron HCl (Zofran Inj) 4 mg IVP Q6H PRN PRN Reason: Nausea/Vomiting Oxycodone HCl (Oxycodone Immediate Release Tab) 5 mg PO Q6 PRN PRN Reason: moderate pain 4-7 Last Admin: 08/25/18 03:08 Dose: 5 mg Pantoprazole Sodium (Protonix Ec Tab) 40 mg PO 0600 [facility] Last Admin: 08/25/18 05:46 Dose: 40 mg Polyethylene Glycol (Miralax) 17 gm PO HS PRN; Protocol PRN Reason: Constipation Polysaccharide Iron Complex (Ferrex-150) 150 mg PO DAILY [facility] Last Admin: 08/25/18 09:22 Dose: 150 mg Prednisone (Prednisone Tab) 20 mg PO 0800 [facility]; Protocol Sodium Chloride ([place] Nasal [place]) 0 ml NS Q2H PRN PRN Reason: Nasal congestion Tamsulosin HCl (Flomax) 0.4 mg PO DAILY [facility] Last Admin: 08/25/18 09:22 Dose: 0.4 mg - Labs Labs: 08/25/18 07:00 08/25/18 07:00 - Constitutional Appears: Non-toxic, No Acute Distress - Head Exam Head Exam: ATRAUMATIC, NORMOCEPHALIC - Eye Exam Eye Exam: EOMI, PERRL Pupil Exam: NORMAL ACCOMODATION, PERRL - ENT Exam ENT Exam: Mucous Membranes Moist, Normal External Ear Exam, TM's Normal Bilaterally - Neck Exam Neck Exam: Full ROM, Normal Inspection - Respiratory Exam Respiratory Exam: Clear to Ausculation Bilateral, NORMAL BREATHING PATTERN. absent: Rales, Rhonchi, Wheezes - Cardiovascular Exam Cardiovascular Exam: REGULAR RHYTHM, RRR, +S1, +S2 - GI/Abdominal Exam GI & Abdominal Exam: Soft, Normal Bowel Sounds. absent: Distended, Tenderness - Extremities Exam Extremities Exam: Full ROM, Pedal Edema Additional comments: +1 edema of the bilateral lower extremities - Back Exam Additional comments: two large healed scars on the mid-lower back - Neurological Exam Neurological Exam: Alert, Awake, CN II-XII Intact, Oriented x3 - Psychiatric Exam Psychiatric exam: Normal Affect, Normal Mood - Skin Skin Exam: Intact, Normal Color Assessment and Plan - Assessment and Plan (Free Text) Assessment: 78 yo AA male with syncopal episode brought to [facility] [place] further care. UTI with EBSL+ E. coli. Left lower leg ulceration. Started on Meropenem for antibiotic treatment. Supportive care. Fluoroquinolone allergies. Looking for 5-7 total days of treatment for UTI. Given ESBL+ E. coli, limited antibiotic choices. Nearing completion (today). Supportive care. Patient overall comfortable. Thank you for allowing me to participate in the care of the patient, we will follow with you.
[2018-08-25 16:50] VITALS: RESP 20; TEMP 98.3; O2SAT 99
--- NOTE | 2018-08-26 01:13 | PN ---
DATE: 08/25/2018 SUBJECTIVE: The patient is a 78-year-old male. The patient was seen and examined at the bedside on 08/25/2018. Looking comfortable. No fever. No chills. No hematuria. No hematochezia. No headache. No dizziness. No chest pain. No palpitation. Enjoying his dinner. PHYSICAL EXAMINATION: VITAL SIGNS: Blood pressure 150/80, pulse 88, temperature 98.2, oxygen saturation 98% on room air, and breathing 18. HEENT: Head; normocephalic and atraumatic. Eyes; PERRLA. Extraocular muscles are intact. Conjunctivae clear. Nose patent. Mucous membranes moist. NECK: Supple. No carotid bruits, JVD or thyromegaly. CHEST: Bilaterally symmetrical. HEART: S1 and S2 positive. LUNGS: Clear to auscultation. ABDOMEN: Soft. Bowel sounds present. No organomegaly. EXTREMITIES: No edema. No cyanosis. NEUROLOGICAL: The patient is awake and alert. Moving all four extremities. No focal deficits. MEDICATIONS: Tylenol, DuoNeb, Cepacol, Neurontin, Pepcid, Flonase, Dilaudid, Singulair, and Bactroban. LABORATORY DATA: White blood cells 4.5, hemoglobin 11.4, hematocrit 34.8, and platelets 165. Sodium 137, potassium 5, BUN 18, creatinine 0.7, and calcium 12.2. ASSESSMENT AND PLAN: Mr. Alexsander Serra with multiple medical problems; pulmonary hypertension, morbid obesity, suspected sleep apnea syndrome, chronic pain syndrome, degenerative joint disease, cervical spine C3-C5 fusion, hypertension, hypercholesterolemia, and lymphedema of the lower extremities. Length of time discussion done. Repeat labs. Getting physical therapy. We will follow up. Leah Cantu MD
[2018-08-26] MEDS: Albuterol-Ipratrop 3 mg / 0.5 (3 ml) UD IH SCH ×3 (02:04→13:45)
[2018-08-26] MEDS: Pantoprazole 40 mg EC Tab PO SCH (05:44)
[2018-08-26] MEDS: oxyCODONE 5 mg Immediate Release Tab PO PRN (05:44)
[2018-08-26 07:38] LABS: BLOOD UREA NITROGEN 18 mg/dL (7-21); CALCIUM 12.8 mg/dL (8.4-10.5); GFR NON-AFRICAN AMERICAN > 60
[2018-08-26] MEDS: Iron Complex Polysacch 150mg Cap PO SCH (09:57)
[2018-08-26] MEDS: Morphine 30 mg SR Tab PO SCH (10:00)
[2018-08-26] MEDS: Mupirocin 2% Ointment 15 GM TUBE TOP SCH (10:15)
[2018-08-26 10:19] VITALS: BP 160/78
--- NOTE | 2018-08-26 10:23 | PN ---
DATE: 08/26/2018 PULMONARY PROGRESS NOTE REFERRING PHYSICIAN: Leah Cantu MD SUBJECTIVE: The patient is seen sitting on the bedside. No acute distress. No overnight events reported. Reports feeling well this morning. No headache, rhinitis, cough, shortness of breath, chest pain, abdominal pain, nausea, vomiting, diarrhea, leg pain, leg swelling reported. PHYSICAL EXAMINATION: VITAL SIGNS: Blood pressure 147/53, pulse 60, temperature 98.3, oxygen saturation 99 on room air. GENERAL: No acute distress. HEENT: Moist mucous membranes. Mallampati score of 4. Crowded airway. NECK: Supple. No JVD. LUNGS: Fair airflow bilaterally. CARDIOVASCULAR: S1 and S2. ABDOMEN: Soft and nontender. No distention. No organomegaly. EXTREMITIES: Lymphedema, bilateral lower extremity. Ulceration, left lower extremity. NEUROLOGIC: Awake, alert, and verbal. Follows commands. MEDICATIONS: Reviewed. Tylenol 650 every 6 hours p.r.n. for temperature above 101, DuoNeb 3 mL inhalation every 6 hours, Cepacol throat lozenges every 2 hours p.r.n., Pepcid 40 mg at bedtime, Flonase nasal spray twice a day, Neurontin 600 mg three times a day, Dilaudid 0.5 mg IV push every 4 hours p.r.n., milk of magnesia 30 mL p.o. daily p.r.n., Lopressor 50 mg twice a day, Singulair 10 mg at bedtime, morphine 60 mg every 12 hours, Bactroban topically daily to affected area, Zofran 4 mg IV push every 6 hours p.r.n, oxycodone 5 mg every 6 hours p.r.n., Protonix 40 mg daily, MiraLax 17 g at bedtime p.r.n., Ferrex 150 mg daily, prednisone 20 mg daily, [place] nasal spray every 2 hours p.r.n., and Flomax 0.4 mg daily. LABORATORY DATA: Reviewed. Sodium 137, potassium 5.1, chloride 106, carbon dioxide 25, anion gap 11, BUN 18, creatinine 0.7, GFR greater than 60, random glucose 89, calcium 12.8, phosphorus 3, magnesium 2.2. IMPRESSION AND PLAN: Pulmonary hypertension, morbid obesity, suspected sleep apnea syndrome, chronic pain syndrome, degenerative joint disease, history of cervical C3-C6 fusion, lymphedema lower extremities, hypertension, extended-spectrum beta-lactamases in urine, anemia, chronic venous stasis, chronic obstructive pulmonary disease. Pulmonary point of view, continue inhaled bronchodilators. Antibiotics were discontinued. Gastric prophylaxis, sleep apnea precaution, head of bed elevated at 45 degrees, and gastroesophageal reflux disease precaution. The patient is scheduled to be discharged home today. Recommend patient go home on tapering dose of steroids. Patient with hypercalcemia. Hematology/oncology consult ordered. We recommend the patient have full pulmonary function test as outpatient to assess chronic lung disease. We recommend the patient have attended sleep study as outpatient to evaluate for suspected sleep apnea syndrome. Pain management. This patient was seen and examined with Dr. Orourke. Discussed assessment and plan as described above. This patient was seen and examined with Enrique Carter, nurse practitioner. Discussed assessment and plan as described above. Thank you for this consult. We will follow with you. Enrique Carter APN Brooke Orourke MD AMANDA
[2018-08-26] MEDS: Fluticasone Nasal 50 mcg/Spray NS SCH (10:24)
--- NOTE | 2018-08-26 10:36 | PN ---
DATE: 08/26/2018 REASON FOR CONSULTATION AND FOLLOWUP: Possible syncope, hypertension, cardiac evaluation, and deconditioning of the body, now in Transitional Care Unit. SUBJECTIVE: The patient denies any chest pain, shortness of breath, or any palpitation. OBJECTIVE: GENERAL: Not in apparent distress. VITAL SIGNS: Temperature afebrile, heart rate 60, and blood pressure 147/53. HEENT: PERRLA. Extraocular muscles intact. NECK: Supple. No carotid bruits or thyromegaly. CHEST: Clear to auscultation. HEART: S1 and S2 regular. ABDOMEN: Soft. EXTREMITIES: Clubbing and cyanosis, negative. LABORATORY DATA: Blood workup as follows; WBC 4.5 as of yesterday, hemoglobin 11.4, hematocrit 34.8, and platelet count 165. Chemistry shows sodium 137, potassium 5.1, chloride 106, carbon dioxide 25, anion gap of 11, BUN 18, creatinine 0.7, and calcium 12.8. IMPRESSION: A 78-year-old male, with past medical history significant for hypertension, shoulder pain, cervical radiculopathy, cervical fusion of C3-C6, and chronic venous stasis, admitted after a fall. Echocardiography revealed ejection fraction of 55%, possible mechanical fall, history of chronic back pain, recurrent urinary tract infection, anemia, moderate pulmonary hypertension, dilated right atrium, dilated right ventricle, right ventricular systolic pressure 63, and hypercalcemia. RECOMMENDATIONS: Continue medical treatment. The patient is scheduled for stress test as an outpatient in . We discussed with the patient. The patient is agreeable. The patient needs a workup for hypercalcemia to rule out metastatic disease. We will discuss with Dr. Cantu. Thank you Dr. Cantu for providing us the opportunity in taking care of the patient, Alexsander Serra. Brooke Chapa MD
[2018-08-26 12:34] VITALS: PULSE 63
--- NOTE | 2018-08-26 13:29 | PN ---
DATE: 08/26/2018 SUBJECTIVE: A 78-year-old male seen at bedside for continued evaluation and management of a left lower leg ulceration which is healing nicely and he reports no pain. He has been afebrile and is ambulating as tolerated. Vital signs reveal temperature of 98.3, pulse rate of 60, blood pressure of 147/53, respiratory rate of 20. Laboratory findings reveal white count of 4.5, hemoglobin of 11.4, hematocrit of 34.8, platelet count of 165. OBJECTIVE : Weakly palpable pedal pulses noted bilaterally, +2 nonpitting lower extremity edema noted bilaterally. Protective sensation is decreased but intact bilaterally. There is noted to be a full-thickness ulceration which is linear in shape and measures approximately 1.8 cm x 0.2 cm x 0.2 cm on the proximal one-third of the anterior right leg. Base of the ulcer is a mixture of fibrotic and mostly granular tissue. There is minimal drainage. There is no malodor, no purulence. No underlying abscess formation noted. No probing to tendon or bone. The periphery of the wound is void of any erythematous or edematous tissue to suggest active cellulitis. ASSESSMENT: A 78-year-old male with slowly resolving left lower leg ulceration. PLAN: The patient was seen. Wound was cleansed with normal sterile saline and application of Bactroban and a dry sterile dressing was applied. The patient is set for discharge today and will follow up with Dr. Scot Cobian at the [facility] on Tuesday. Jose Lucia DPM
--- NOTE | 2018-08-26 15:05 | CP.PCM.PN ---
Subjective - Date & Time of Evaluation Date of Evaluation: 08/26/18 Time of Evaluation: 13:45 - Subjective Subjective: Infectious Disease Follow Up: August 26, 2018 78 yo AA male with a syncopal episode at home. Brought [place] [facility] [place]. Found to have UTI with ESBL+ E. coli. He has multiple medical issues including chronic back pain and ulceration on the left lower leg. The patient is awake and alert now. No major complaints at this time. The patient is comfortable at this time. Ambulatory. Tolerating Meropenem. Noted Heme/Onc consult called. Objective - Vital Signs/Intake and Output Vital Signs (last 24 hours): Temp Pulse Resp BP Pulse Ox 98.3 F 63 20 160/78 H 99 08/25/18 16:00 08/26/18 12:23 08/25/18 16:00 08/26/18 10:17 08/26/18 12:23 - Medications Medications: Current Medications Acetaminophen (Tylenol 325mg Tab) 650 mg PO Q6H PRN PRN Reason: temp above 101 Albuterol/Ipratropium (Duoneb 3 Mg/0.5 Mg (3 Ml) Ud) 3 ml IH [id number] [facility] Last Admin: 08/26/18 13:45 Dose: Not Given Benzocaine/Menthol (Cepacol Sore Throat) 1 katt MT Q2H PRN PRN Reason: Sore Throat Famotidine (Pepcid) 40 mg PO HS [facility] Last Admin: 08/25/18 21:15 Dose: 40 mg Fluticasone Propionate (Flonase) 1 actuation NS BID [facility] Last Admin: 08/26/18 10:24 Dose: 1 actuation Gabapentin (Neurontin) 600 mg PO TID [facility] Last Admin: 08/26/18 13:16 Dose: 600 mg Hydromorphone HCl (Dilaudid) 0.5 mg IVP Q4H PRN PRN Reason: mild pain ( 1-3) Last Admin: 08/24/18 05:33 Dose: 0.5 mg Magnesium Hydroxide (Milk Of Magnesia) 30 ml PO DAILY PRN PRN Reason: Heartburn Last Admin: 08/23/18 13:35 Dose: 30 ml Metoprolol Tartrate (Lopressor) 50 mg PO 0800,1800 [facility] Last Admin: 08/26/18 10:17 Dose: 50 mg Montelukast Sodium (Singulair) 10 mg PO HS [facility] Last Admin: 08/25/18 21:15 Dose: 10 mg Morphine Sulfate (Morphine Extended Release Tab) 60 mg PO Q12 [facility] Last Admin: 08/26/18 10:00 Dose: 60 mg Mupirocin (Bactroban Ointment) 0 gm TOP DAILY [facility] Last Admin: 08/26/18 10:15 Dose: Not Given Ondansetron HCl (Zofran Inj) 4 mg IVP Q6H PRN PRN Reason: Nausea/Vomiting Oxycodone HCl (Oxycodone Immediate Release Tab) 5 mg PO Q6 PRN PRN Reason: moderate pain 4-7 Last Admin: 08/26/18 05:44 Dose: 5 mg Pantoprazole Sodium (Protonix Ec Tab) 40 mg PO 0600 [facility] Last Admin: 08/26/18 05:44 Dose: 40 mg Polyethylene Glycol (Miralax) 17 gm PO HS PRN; Protocol PRN Reason: Constipation Polysaccharide Iron Complex (Ferrex-150) 150 mg PO DAILY [facility] Last Admin: 08/26/18 09:57 Dose: 150 mg Prednisone (Prednisone Tab) 20 mg PO 0800 [facility]; Protocol Last Admin: 08/26/18 08:22 Dose: 20 mg Sodium Chloride ([place] Nasal [place]) 0 ml NS Q2H PRN PRN Reason: Nasal congestion Tamsulosin HCl (Flomax) 0.4 mg PO DAILY [facility] Last Admin: 08/26/18 09:57 Dose: 0.4 mg - Labs Labs: 08/25/18 07:00 08/26/18 05:00 - Constitutional Appears: Non-toxic, No Acute Distress - Head Exam Head Exam: ATRAUMATIC, NORMOCEPHALIC - Eye Exam Eye Exam: EOMI, PERRL Pupil Exam: NORMAL ACCOMODATION, PERRL - ENT Exam ENT Exam: Mucous Membranes Moist, Normal External Ear Exam, TM's Normal Bilaterally - Neck Exam Neck Exam: Full ROM, Normal Inspection - Respiratory Exam Respiratory Exam: Clear to Ausculation Bilateral, NORMAL BREATHING PATTERN. absent: Rales, Rhonchi, Wheezes - Cardiovascular Exam Cardiovascular Exam: REGULAR RHYTHM, RRR, +S1, +S2 - GI/Abdominal Exam GI & Abdominal Exam: Soft, Normal Bowel Sounds. absent: Distended, Tenderness - Extremities Exam Extremities Exam: Full ROM, Normal Inspection Additional comments: +1 edema of the bilateral lower extremities - Back Exam Additional comments: two large healed scars on the mid-lower back - Neurological Exam Neurological Exam: Alert, Awake, CN II-XII Intact, Oriented x3 - Psychiatric Exam Psychiatric exam: Normal Affect, Normal Mood - Skin Skin Exam: Intact, Normal Color Assessment and Plan - Assessment and Plan (Free Text) Assessment: 78 yo AA male with syncopal episode brought [place] [facility] [place]. UTI with EBSL+ E. coli. Left lower leg ulceration. Started on Meropenem for antibiotic treatment. Supportive care. Fluoroquinolone allergies. Looking for 5-7 total days of treatment for UTI. Given ESBL+ E. coli, limited antibiotic choices. Nearing completion (today). Supportive care. Patient overall comfortable. Noted Heme/Onc consult called. Thank you for allowing me to participate in the care of the patient, we will follow with you.
== END 2018-08-26 15:36 | disposition home health service (06) | DRG 312 ==
LOC: TRCU 18:44
PROVIDERS: ADMIT Internal Medicine; ATTEND Internal Medicine
PROC: F07Z9FZ Gait Training/Functional Ambulation Treatment using Assistive, Adaptive, Supportive or Protective Equipment (ICD-10-PCS; principal; 2018-08-19)
PROC: F07 Physical Rehabilitation and Diagnostic Audiology, Rehabilitation, Motor Treatment (ICD-10-PCS; 2018-08-19)
PROC: F08Z2ZZ Grooming/Personal Hygiene Treatment (ICD-10-PCS; 2018-08-19)
PROC: F08Z1ZZ Dressing Techniques Treatment (ICD-10-PCS; 2018-08-19)
DX: R55 Syncope and collapse (principal); N39.0 Urinary tract infection, site not specified; J44.0 Chronic obstructive pulmonary disease with (acute) lower respiratory infection; L03.116 Cellulitis of left lower limb; L97.929 Non-pressure chronic ulcer of unspecified part of left lower leg with unspecified severity; N40.0 Benign prostatic hyperplasia without lower urinary tract symptoms; M54.12 Radiculopathy, cervical region; M19.90 Unspecified osteoarthritis, unspecified site; B96.20 Unspecified Escherichia coli [E. coli] as the cause of diseases classified elsewhere; E66.01 Morbid (severe) obesity due to excess calories; E83.52 Hypercalcemia; G89.4 Chronic pain syndrome; I10 Essential (primary) hypertension; I27.20 Pulmonary hypertension, unspecified; I87.2 Venous insufficiency (chronic) (peripheral); I87.8 Other specified disorders of veins; I89.0 Lymphedema, not elsewhere classified; J20.9 Acute bronchitis, unspecified; K21.9 Gastro-esophageal reflux disease without esophagitis; W18.30XA Fall on same level, unspecified, initial encounter; Z79.899 Other long term (current) drug therapy; Z87.440 Personal history of urinary (tract) infections; Z87.891 Personal history of nicotine dependence; Z98.1 Arthrodesis status; D50.9 Iron deficiency anemia, unspecified; Z16.12 Extended spectrum beta lactamase (ESBL) resistance; Z88.1 Allergy status to other antibiotic agents; Z87.892 Personal history of anaphylaxis; M54.9 Dorsalgia, unspecified; M25.512 Pain in left shoulder; M25.511 Pain in right shoulder; I08.3 Combined rheumatic disorders of mitral, aortic and tricuspid valves